=== PATIENT | male | born 1965 | race Caucasian/White ===

== ENCOUNTER 2016-09-09 13:39 | Emergency (ER) | payer OTHER ==
--- NOTE | 2016-09-09 14:17 | ED NURSING NOTES ---
Clinical Report - Nurses [facility] [address] [place] [address] 09/09/2016 13:45 Patient: VIVIEN BRIAN TRIAGE Triage time 1356 PM. Acuity: LEVEL 4. Chief Complaint: FEVER, COUGH, SORE THROAT and BODY ACHES. Alert. No acute distress. IMER COMA SCORE: Imer Coma Scale: 15- eyes open spontaneously (4); best verbal response- oriented x 4 (5); best motor response- obeys commands (6). --14:06 Blanac Rodriguez R.N. 13:55 09/09/16. BP: 126/65 (regular adult cuff) taken on the left arm, while lying. HR: 87. RR: 18. O2 saturation: 98%. Temp: 98.3 F (oral). Pain level now: 09/16. --14:06 Blanca Rodriguez R.N. Weight: 127 kg stated. Height/Length: 71 inches. BMI: 39.1. --14:01 Blanca Rodriguez R.N. Medications Levothyroxine Sodium Oral. --13:59 Blanca Rodriguez R.N. Ambien Oral. --13:59 Blanca Rodriguez R.N. Flonase Nasal. --13:59 Blanca Rodriguez R.N. Steroid inhaler . --14:00 Blanca Rodriguez R.N. Medication/allergy information source: the patient. --14:06 Blanca Rodriguez R.N. Allergies No Known Drug Allergy. --13:59 Blanca Rodriguez R.N. History Arrived by private vehicle. Historian: patient. Primary physician ([facility]). This started yesterday. ( Pt states feeling sick since yesterday, body aches, sweating, chest congestion, dry cough). He has had chills, chills, fatigue, diarrhea and nausea. He has had chest congestion (yesterday). Reports muscle aches. No sinus pain, abdominal pain or vomiting. No recent travel. Treatment CLINICAL SPECIALIST: Took Tylenol. (350mg x3 this morning). PAST MEDICAL HX: Immunizations: status is unknown. SOCIAL HX: Former smoker, end date 2007. Alcohol use. Patient is a recovering alcoholic. (23 years). No drug use. ABUSE ASSESSMENT: No report of abuse. SELF HARM ASSESSMENT: A self harm assessment was performed. The patient answered "no" to the question "Have you recently had thoughts about harming or killing others?". FALL RISK ASSESSMENT: Fall risk assessment completed. No fall risk identified. NUTRITIONAL RISK ASSESSMENT: The nutritional risk assessment revealed no deficiencies. FUNCTIONAL ASSESSMENT: Functional assessment: no impairments noted. LEARNING NEEDS ASSESSMENT: The learning needs assessment revealed no barriers. SKIN INTEGRITY ASSESSMENT: Skin integrity risk assessment completed. No skin integrity risk identified. --14:06 Blanca Rodriguez R.N. PROBLEMS: Asthma. Lifestyle / Substance Problems. Obesity. Hyperglycemia. Gastroesophageal Reflux Disease. Chronic Back Pain. Hypothyroidism. Suicidal Ideation. Depression. Immunizations. Anxiety Reaction. Manic bipolar I disorder. Schizophrenia. Diabetes Mellitus. --14:00 Blanca Rodriguez R.N. ADDITIONAL SURGERIES: Carpal Tunnel Surgery. Fractured cheek bone. --14:00 Blanca Rodriguez R.N. Assessment GENERAL / NEURO / PSYCH: Alert. Oriented X 4. Appears in no acute distress. Patient appears calm and cooperative. RESPIRATORY: Respirations not labored. Breath sounds within normal limits. CVS: Capillary refill less than 2 seconds. SKIN: Mucous membranes are pink. Skin is warm and dry. --14:06 Blanca Rodriguez R.N. Interventions ID band on patient. --14:06 Blanca Rodriguez R.N. PHYSICAL ASSESSMENT GENERAL / NEURO / PSYCH: Alert. Oriented X 4. Appears in no acute distress. RESPIRATORY: Respirations not labored. Breath sounds within normal limits. CVS: Capillary refill less than 2 seconds. SKIN: Skin intact. Skin is warm and dry. Normal skin turgor. --14:06 Blanca Rodriguez R.N. NURSING PROGRESS NOTES The initial plan of care for this patient has been created This plan of care was discussed with the patient. Pulse oximeter applied. Patient gowned. Reassurance given and given. Patient teaching performed. Patient identifiers checked. Call light placed in reach. Side rails up x 1. Bed placed in lowest position. Brakes of bed on. Brakes of chair on. Patient ready for evaluation- chart flagged and notification provided. FALL RISK ASSESSMENT: Fall risk assessment completed. No fall risk identified. --14:07 Blanca Rodriguez R.N. DISPOSITION / DISCHARGE Departure time: 1442 PM. Condition at departure: stable. The goals identified in the patient's plan of care were met. No learning barriers present. Discharge instructions provided and reviewed with the patient. Reviewed medication(s) side effects, precautions, dosing and course information. Prescription(s) given to the patient. Reviewed need for increased fluid intake. Activity restrictions (rest) reviewed. Patient verbalized understanding. Written instructions provided in Hungarian. ( Pt expresses understanding of discharge instructions, prescription given. Pt safely discharged). The patient was discharged by the nurse practitioner. He was discharged home and accompanied by self. He left the Emergency Department ambulatory and via private vehicle. Patient driving. FALL RISK ASSESSMENT: Fall risk assessment completed. No fall risk identified. IMER COMA SCORE: Imer Coma Scale: 15- eyes open spontaneously (4); best verbal response- oriented x 4 (5); best motor response- obeys commands (6). --14:44 Blanca Rodriguez R.N. 14:38 09/09/16. BP: 118/63 (large adult cuff) taken on the left arm, via an automated monitor, while sitting. HR: 86. RR: 18. O2 saturation: 99% on room air. Temp: 98.2 F (oral). Pain level now: 0/10. --14:44 Blanca Rodriguez R.N. Locked/Released at 09/17/2016 15:09 by Blanca Rodriguez R.N.
--- NOTE | 2016-09-09 14:17 | ED CLINICAL REPORT ---
Clinical Report - Physicians/Mid Levels [facility] [address] [place] [address] 09/09/2016 13:45 Patient: VIVIEN BRIAN Time Seen: 13:53; initial patient contact, initial documentation, patient care assumed. Arrived- By private vehicle. Historian- patient. HISTORY OF PRESENT ILLNESS Chief Complaint: COUGH, SORE THROAT, FEVER, MUSCLE ACHES and "FLU". This started yesterday and is still present. It was abrupt in onset. The illness is described as moderate. The patient has had a cough, a severe sore throat . It has been associated with pain upon swallowing, nasal congestion, fever and generalized muscle aches. No difficulty breathing, chest discomfort, sinus pressure or sinus drainage. Additional history - No known contact with a sick individual. No recent travel. Similar symptoms previously: None. Recent medical care: Not recently seen/assessed. REVIEW OF SYSTEMS The patient has had nausea and diarrhea. All systems otherwise negative, except as recorded above. PAST HISTORY See nurses notes. PROBLEMS: Asthma. Lifestyle / Substance Problems. Obesity. Hyperglycemia. Gastroesophageal Reflux Disease. Chronic Back Pain. Hypothyroidism. Suicidal Ideation. Depression. Immunizations. Anxiety Reaction. Manic bipolar I disorder. Schizophrenia. Diabetes Mellitus. --14:00 Blanca Rodriguez R.N. ADDITIONAL SURGERIES: Carpal Tunnel Surgery. Fractured cheek bone. --14:00 Blanca Rodriguez R.N. SOCIAL HISTORY Former smoker. Alcohol use. Patient is a recovering alcoholic. Not exposed to second-hand smoke at home. No drug use. No recent travel. Is a local resident. FAMILY HISTORY Negative. ADDITIONAL NOTES The nursing notes have been reviewed with agreement regarding the chief complaint, HPI, ROS, PMH and patient medications and allergies. PHYSICAL EXAM Vital Signs: 09/09/2016 13:55 BP: 126/65. HR: 87. RR: 18. O2 saturation: 98%. Temp: 98.3 F. Pain level now: 1/10. Have been reviewed as normal and appear to be correct. Appearance: Alert. No acute distress. Eyes: Pupils equal, round and reactive to light. Eyes normal inspection. ENT: Ears normal. Nose normal. Pharynx abnormal. A moderate number of tender mouth ulcerations present in the posterior pharynx and on the hard palate and soft palate. Uvula midline. Neck: Normal inspection. Neck supple. CVS: Normal heart rate and rhythm. Heart sounds normal. Pulses normal. Respiratory: No respiratory distress. Breath sounds normal. Abdomen: Moderately obese. Back: Normal inspection. Skin: Skin warm and dry. Normal skin color. No rash. Normal skin turgor. Extremities: Extremities exhibit normal ROM. No lower extremity edema. Neuro: Oriented X 3. No motor deficit. No sensory deficit. PROGRESS AND PROCEDURES Patient counseled in person regarding the patient's stable condition and diagnosis. 14:17. Differential Diagnosis: Other possible considerations: flu, viral illness, uri, sinusitis, allergies, pharyngitis, bronchitis, pneuomnia. Above considerations are based on history and physical exam. Differential diagnosis was discussed with patient. Disposition: Discharged home in good and unchanged condition (14:17). Condition: good and stable. CLINICAL IMPRESSION Acute viral rhinitis. No airway obstruction. Acute viral pharyngitis INSTRUCTIONS Alternate Tylenol (Acetaminophen) and Motrin (Ibuprofen) for fever, temperature greater than 101 degrees. Take according to label instructions. Drink plenty of fluids for the next 24 hours until better. Warnings: GENERAL WARNINGS: Return or contact your physician immediately if your condition worsens or changes unexpectedly, if not improving as expected, or if other problems arise. Specifically return if problem worsens. Prescription Medications: Motrin 600 mg tablets: take 1 tablet orally every 6 hours as needed for pain or fever. Dispense thirty (30). No refill. Magic Mouthwash: equal parts Viscous Lidocaine 2% + Maalox + Diphenhydramine (12.5 mg / 5 mL) Viscous 2% Lidocaine 30 mL, Maalox 30 mL and Diphenhydramine (12.5 mL/5 mL) 30 mL. Swish, gargle, and spit 1-2 teaspoons every 6 hours as needed. Dispense ninety (90) mL. No refills Follow-up: Follow up with your doctor in about three days as needed. Call for an appointment. Summary of care provided to patient. Understanding of the discharge instructions verbalized by patient. (Electronically signed by Marguerite Gonzales A.R.N.P. 09/09/2016 15:40)
--- NOTE | 2016-09-17 15:10 | ED DISCHARGE INSTRUCTIONS ---
Patient: VIVIEN BRIAN General Instructions [facility] VisitID: [id number] [place] [address] 51y, M Registration Date/Time: 09/09/2016 Acute viral rhinitis. No airway obstruction. Acute viral pharyngitis INSTRUCTIONS Alternate Tylenol (Acetaminophen) and Motrin (Ibuprofen) for fever, temperature greater than 101 degrees. Take according to label instructions. Drink plenty of fluids for the next 24 hours until better. Warnings: GENERAL WARNINGS: Return or contact your physician immediately if your condition worsens or changes unexpectedly, if not improving as expected, or if other problems arise. Specifically return if problem worsens. Prescription Medications: Motrin 600 mg tablets: take 1 tablet orally every 6 hours as needed for pain or fever. Dispense thirty (30). No refill. Magic Mouthwash: equal parts Viscous Lidocaine 2% + Maalox + Diphenhydramine (12.5 mg / 5 mL) Viscous 2% Lidocaine 30 mL, Maalox 30 mL and Diphenhydramine (12.5 mL/5 mL) 30 mL. Swish, gargle, and spit 1-2 teaspoons every 6 hours as needed. Dispense ninety (90) mL. No refills Follow-up: Follow up with your doctor in about three days as needed. Call for an appointment. Summary of care provided to patient. Understanding of the discharge instructions verbalized by patient. ADDITIONAL INFORMATION Viral Pharyngitis (Sore Throat) Your throat pain is due to an infection called "Viral Pharyngitis", commonly known as "Sore Throat". This is a contagious illness. It is spread through the air by coughing, kissing or by touching others after touching your mouth or nose. Symptoms include throat pain worse with swallowing, aching all over, headache and fever. Unlike strep throat, which is a bacterial infection, this illness does not require treatment with an antibiotic. Home Care: If your symptoms are severe, rest at home for the first 2-3 days. Children: Use acetaminophen (Tylenol) for fever, fussiness or discomfort. In infants over six months of age, you may use ibuprofen (Children's Motrin) instead of Tylenol. [NOTE: If your child has chronic liver or kidney disease or ever had a stomach ulcer or GI bleeding, talk with your socorro doctor before using these medicines.] (Aspirin should never be used in anyone under 18 years of age who is ill with a fever. It may cause severe liver damage.) Adults: You may use acetaminophen (Tylenol) or ibuprofen (Motrin, Advil) to control pain or fever, unless another medicine was prescribed. [NOTE: If you have chronic liver or kidney disease or ever had a stomach ulcer or GI bleeding, talk with your doctor before using these medicines.] Throat lozenges or sprays (Chloraseptic and others) will reduce pain. Gargling with warm salt water will also reduce throat pain. Dissolve 1/2 teaspoon of salt in 1 glass of warm water. This is especially useful just before meals. Follow Up with your doctor or as directed by our staff if you are not improving over the next week. Get Prompt Medical Attention if any of the following occur: Fever over 100.5F (38.0C) oral, or over 101.5F (38.6C) rectal for more than three days New or worsening ear pain, sinus pain or headache Painful lumps in the back of your neck Unable to swallow liquids or open your mouth wide due to throat pain Trouble breathing or noisy breathing Muffled voice New rash Viral Respiratory Illness [Adult] You have an Upper Respiratory Illness (URI) caused by a virus. This illness is contagious during the first few days. It is spread through the air by coughing and sneezing or by direct contact (touching the sick person and then touching your own eyes, nose or mouth). Most viral illnesses go away within 7-10 days with rest and simple home remedies. Sometimes, the illness may last for several weeks. Antibiotics will not kill a virus and are generally not prescribed for this condition. Home Care: 1) If symptoms are severe, rest at home for the first 2-3 days. When you resume activity, don't let yourself get too tired. 2) Avoid being exposed to cigarette smoke (yours or others). 3) Tylenol (acetaminophen) or ibuprofen (Advil, Motrin) will help fever, muscle aching and headache. (Persons under 18 with fever should not take aspirin since this may cause liver damage.) 4) Your appetite may be poor, so a light diet is fine. Avoid dehydration by drinking 6-8 glasses of fluids per day (water, soft drinks, juices, tea, soup). Extra fluids will help loosen secretions in the nose and lungs. 5) [id number] cold medicines will not shorten the length of time youre sick, but they may be helpful for the following symptoms: cough (Robitussin DM); sore throat (Chloraseptic lozenges or spray); nasal and sinus congestion (Actifed, Sudafed, Chlortrimeton). Follow Up with your doctor or as advised if you dont improve over the next week. Get Prompt Medical Attention if any of the following occur: -- Cough with lots of colored sputum (mucus) or blood in your sputum -- Chest pain, shortness of breath, wheezing or have trouble breathing -- Severe headache; face, neck or ear pain -- Fever over 100.4 F (38.0 C) for more than three days -- You cant swallow due to throat pain Fever Control (Adult) A fever is a natural reaction of the body to an illness. In most cases, the temperature itself is not harmful. It actually helps the body fight infections. A fever does not need to be treated unless you feel very uncomfortable. Home Care If you feel warm, check your temperature. If you feel very uncomfortable and your temperature is at or higher than 100.4F (38C) oral, you may take acetaminophen (Tylenol) every 4 to 6 hours. If you cant take or keep down oral medicine, ask your pharmacist for Tylenol suppositories, which you can get without a prescription. If the fever does not respond to acetaminophen within 1 hour, take ibuprofen (Advil or Motrin). If this works, keep taking the ibuprofen every 6 to 8 hours. Note: If you have chronic liver or kidney disease or ever had a stomach ulcer or GI bleeding, talk with your doctor before using these medications. If either medication alone does not keep the fever down, you may alternate the two medicines every 3 to 4 hours, only if your healthcare provider has instructed you to do so. For example, take Motrin then wait 3 hours, take Tylenol then wait 3 hours, take Motrin, and so on. Follow your healthcare providers instructions exactly. Clothing: Keep clothing light because excess body heat is lost through the skin. The fever will go up if you wear extra layers or wrap in blankets. Fluids: Fever causes the body to lose water through evaporation. Drink plenty of fluids such as water, juice, clear sodas, jeremiah gardenia, or lemonade. Do not use aspirin in anyone under 18 years of age who is ill with a fever. It can cause severe liver damage. Follow Up with your doctor or as advised by our staff if you do not get better after 48 hours. Get Prompt Medical Attention if any of the following occur: Fever does not get better after taking fever medication Fast or difficult breathing Earache, sinus pain, stiff or painful neck, headache, repeated diarrhea or vomiting You feel unusually irritable, drowsy, or confused A rash appears You feel weak or dizzy, or that you might faint Ibuprofen Oral tablet What is this medicine? IBUPROFEN (eye BYOO proe fen) is a non-steroidal anti-inflammatory drug (NSAID). It is used for dental pain, fever, headaches or migraines, osteoarthritis, rheumatoid arthritis, or painful monthly periods. It can also relieve minor aches and pains caused by a cold, flu, or sore throat. How should I use this medicine? Take this medicine by mouth with a glass of water. Follow the directions on the prescription label. Take this medicine with food if your stomach gets upset. Try to not lie down for at least 10 minutes after you take the medicine. Take your medicine at regular intervals. Do not take your medicine more often than directed. A special MedGuide will be given to you by the pharmacist with each prescription and refill. Be sure to read this information carefully each time. Talk to your biofuels product development manager regarding the use of this medicine in children. Special care may be needed. What side effects may I notice from receiving this medicine? Side effects that you should report to your doctor or health healthcare specialist as soon as possible: allergic reactions like skin rash, itching or hives, swelling of the face, lips, or tongue black or bloody stools, blood in the urine or in vomit breathing problems changes in vision chest pain general ill feeling or flu-like symptoms nausea or vomiting redness, blistering, peeling or loosening of the skin, including inside the mouth slurred speech or weakness on one side of the body stomach pain unexplained weight gain or swelling unusually weak or tired yellowing of eyes or skin Side effects that usually do not require medical attention (report to your doctor or health healthcare specialist if they continue or are bothersome): constipation or diarrhea dizziness gas or heartburn stomach upset What may interact with this medicine? Do not take this medicine with any of the following medications: cidofovir ketorolac methotrexate pemetrexed This medicine may also interact with the following medications: alcohol aspirin diuretics lithium other drugs for inflammation like prednisone warfarin What if I miss a dose? If you miss a dose, take it as soon as you can. If it is almost time for your next dose, take only that dose. Do not take double or extra doses. Where should I keep my medicine? Keep out of the reach of children. Store at room temperature between 15 and 30 degrees C (59 and 86 degrees F). Keep container tightly closed. Throw away any unused medicine after the expiration date. What should I tell my health care provider before I take this medicine? They need to know if you have any of these conditions: asthma cigarette smoker drink more than 3 alcohol containing drinks a day heart disease or circulation problems such as heart failure or leg edema (fluid retention) high blood pressure kidney disease liver disease stomach bleeding or ulcers an unusual or allergic reaction to ibuprofen, aspirin, other NSAIDS, other medicines, foods, dyes, or preservatives or trying to get breast-feeding What should I watch for while using this medicine? Tell your doctor or healthcare professional if your symptoms do not start to get better or if they get worse. This medicine does not prevent heart attack or stroke. In fact, this medicine may increase the chance of a heart attack or stroke. The chance may increase with longer use of this medicine and in people who have heart disease. If you take aspirin to prevent heart attack or stroke, talk with your doctor or health healthcare specialist. Do not take other medicines that contain aspirin, ibuprofen, or naproxen with this medicine. Side effects such as stomach upset, nausea, or ulcers may be more likely to occur. Many medicines available without a prescription should not be taken with this medicine. This medicine can cause ulcers and bleeding in the stomach and intestines at any time during treatment. Ulcers and bleeding can happen without warning symptoms and can cause . To reduce your risk, do not smoke cigarettes or drink alcohol while you are taking this medicine. You may get drowsy or dizzy. Do not drive, use machinery, or do anything that needs mental alertness until you know how this medicine affects you. Do not stand or sit up quickly, especially if you are an older patient. This reduces the risk of dizzy or fainting spells. This medicine can cause you to bleed more easily. Try to avoid damage to your teeth and gums when you brush or floss your teeth. You have been given the following additional information: Pharyngitis, Viral Uri, Viral, No Abx (Adult) Fever Control (Adult) Ibuprofen Oral tablet (Electronically signed by Marguerite Gonzales A.R.N.P. 09/09/2016 15:40)
--- NOTE | 2016-09-17 15:10 | ED MAR SUMMARY ---
..... Medication Administration Record [facility] [address] [place], [place] [id number] Patient: VIVIEN BRIAN Visit ID: [id number] 51y, M Weight: 127.0 kg Height/Length: 71 in BMI: 39.1 ALLERGIES: No Known Drug Allergy
--- NOTE | 2016-09-17 15:10 | ED MED RECONCILIATION SUMMARY ---
Patient: VIVIEN BRIAN Medication Reconciliation Report [facility] VisitID: [id number] [address] [place] [address] 51y, M Registration Date/Time: 09/09/2016 Weight: 127.0 kg Height/Length: 71 in. BMI: 39.1 ALLERGIES: No Known Drug Allergy The patient's Home Medications are listed below: THE FOLLOWING MEDICATIONS NEED TO BE RECONCILED: Ambien Oral Flonase Nasal Levothyroxine Sodium Oral Steroid inhaler The source(s) of the original Home Medication information: patient The following Medications were given to the patient in the Emergency Department: None. The following Medications were prescribed to the patient: Motrin 600 mg tablets: take 1 tablet orally every 6 hours as needed for pain or fever. Dispense thirty (30). No refill. -- Marguerite Gonzales, A.R.N.P. Magic Mouthwash: equal parts Viscous Lidocaine 2% + Maalox + Diphenhydramine (12.5 mg / 5 mL) Viscous 2% Lidocaine 30 mL, Maalox 30 mL and Diphenhydramine (12.5 mL/5 mL) 30 mL. Swish, gargle, and spit 1-2 teaspoons every 6 hours as needed. Dispense ninety (90) mL. No refills -- Marguerite Gonzales, A.R.N.P.
--- NOTE | 2016-09-17 15:10 | ED MED RECONCILIATION SUMMARY ---
Patient: VIVIEN BRIAN Medication Reconciliation Report [facility] VisitID: [id number] [address] [place] [address] 51y, M Registration Date/Time: 09/09/2016 Weight: 127.0 kg Height/Length: 71 in. BMI: 39.1 ALLERGIES: No Known Drug Allergy The patient's Home Medications are listed below: THE FOLLOWING MEDICATIONS NEED TO BE RECONCILED: Ambien Oral Flonase Nasal Levothyroxine Sodium Oral Steroid inhaler The source(s) of the original Home Medication information: patient The following Medications were given to the patient in the Emergency Department: None. The following Medications were prescribed to the patient: Motrin 600 mg tablets: take 1 tablet orally every 6 hours as needed for pain or fever. Dispense thirty (30). No refill. -- Marguerite Gonazles, A.R.N.P. Magic Mouthwash: equal parts Viscous Lidocaine 2% + Maalox + Diphenhydramine (12.5 mg / 5 mL) Viscous 2% Lidocaine 30 mL, Maalox 30 mL and Diphenhydramine (12.5 mL/5 mL) 30 mL. Swish, gargle, and spit 1-2 teaspoons every 6 hours as needed. Dispense ninety (90) mL. No refills -- Marguerite Gonzales, A.R.N.P.
--- NOTE | 2016-09-17 15:10 | ED MAR SUMMARY ---
..... Medication Administration Record [facility] [address] [place], [place] [id number] Patient: VIVIEN BRIAN Visit ID: [id number] 51y, M Weight: 127.0 kg Height/Length: 71 in BMI: 39.1 ALLERGIES: No Known Drug Allergy
== END 2016-09-09 14:42 | disposition home or self-care (01) ==
LOC: ED SRH 13:39
DX: J02.8 Acute pharyngitis due to other specified organisms (principal); J00 Acute nasopharyngitis [common cold]; B97.89 Other viral agents as the cause of diseases classified elsewhere; J45.909 Unspecified asthma, uncomplicated; F31.9 Bipolar disorder, unspecified; E11.9 Type 2 diabetes mellitus without complications; Z79.51 Long term (current) use of inhaled steroids; Z79.899 Other long term (current) drug therapy; Z87.891 Personal history of nicotine dependence

== ENCOUNTER 2016-11-28 13:32 | Emergency (ER) | payer OTHER ==
--- NOTE | 2016-11-28 15:26 | DIAGNOSTIC IMAGING REPORT ---
PROCEDURE: XR CHEST 1 VIEW INDICATION: EDEMA TECHNIQUE: Portable AP view 03:11 p.m. COMPARISON: None. FINDINGS: Lungs are clear. Heart and mediastinum are normal. Thorax is normal. IMPRESSION: 1. Negative chest.
--- NOTE | 2016-11-28 16:30 | ED NURSING NOTES ---
Clinical Report - Nurses [facility] [address] [place] [address] 11/28/2016 13:32 [id number] Triage time 13:51 Nov 28 2016. Acuity: LEVEL 3. Chief Complaint: RIGHT LOWER EXTREMITY PAIN, SWELLING and REDNESS. LEFT LOWER EXTREMITY PAIN, SWELLING and REDNESS. Alert. No acute distress. IMER COMA SCORE: [place] Coma Scale: 15- eyes open spontaneously (4); best verbal response- oriented x 4 (5); best motor response- obeys commands (6). --14:00 Becky Mendoza R.N. 13:51 11/28/16. BP: 129/62. HR: 87. RR: 16. O2 saturation: 95%. Temp: 97.9 F. Pain level now: 02/14. --14:00 Becky Mendoza R.N. Weight: 133.3 kg stated. Height/Length: 71 inches Per Patient. BMI: 41. --13:59 Becky Mendoza R.N. Medications Levothyroxine Sodium Oral (Tablet 125 mcg) 1 tablet, daily. --13:53 Becky Mendoza R.N. Ambien Oral (Tablet 5 mg) 1 tablet, at bedtime. --13:53 Becky Mendoza R.N. PriLOSEC Oral. --13:54 Becky Mendoza R.N. Allergies No Known Drug Allergy. --17:02 Becky Mendoza R.N. History Arrived by private vehicle. Historian: patient. No injury occurred. This occurred yesterday. He has had trouble walking. No fever. 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 PAST MEDICAL HX: Tetanus status: up-to-date. Immunizations: up-to-date. SOCIAL HX: Former smoker. No alcohol use or drug use. No infectious disease exposure. SELF HARM ASSESSMENT: A self harm assessment was performed. The patient answered "no" to the question "Do you have thoughts of harming or killing yourself?". FALL RISK ASSESSMENT: Fall risk assessment completed. No fall risk identified. NUTRITIONAL RISK ASSESSMENT: The nutritional risk assessment revealed no deficiencies. FUNCTIONAL ASSESSMENT: Functional assessment: no impairments noted. LEARNING NEEDS ASSESSMENT: The learning needs assessment revealed no barriers. ABUSE ASSESSMENT: Abuse assessment: The patient was asked "Do you feel safe in your home?". SKIN INTEGRITY ASSESSMENT: Skin integrity risk assessment completed. No skin integrity risk identified. --14:00 Becky Mendoza R.N. PROBLEMS: Peripheral Vascular Disease. URI. Pharyngitis. Asthma. Lifestyle / Substance Problems. Obesity. Hyperglycemia. Gastroesophageal Reflux Disease. Chronic Back Pain. Hypothyroidism. Suicidal Ideation. Depression. Immunizations. Anxiety Reaction. Manic bipolar I disorder. Schizophrenia. Diabetes Mellitus. --13:56 Becky Mendoza R.N. Interventions ID band on patient. To room. --14:00 Becky Mendoza R.N. PHYSICAL ASSESSMENT Ambulatory to room. GENERAL / NEURO / PSYCH: Oriented X 4. Alert. Appears in no acute distress. EXTREMITIES: Bilateral 3+ edema of the lower extremities involving both feet, both ankles and both lower legs. Right leg: tenderness, swelling and erythema. Left leg: tenderness, swelling and erythema. SKIN: Skin is warm and dry. --14:00 Becky Mendoza R.N. NURSING PROGRESS NOTES Patient gowned. Two patient identifiers checked. Call light placed in reach. Side rails up x 1. Bed placed in lowest position. Brakes of bed on. Patient ready for evaluation- chart flagged. --14:01 Becky Mendoza R.N. 14:48 11/28/2016 Site #1 started via IV in the right upper arm with an 20g angiocath; one attempt. Saline lock flushed with 10 mL saline. --14:48 Becky Mendoza R.N. EKG time: (15:06). EKG was performed by a tech and shown to the ED physician. ( No old EKG in [facility] medical records). --15:14 Adrianne Castillo 15:19 11/28/16. BP: 135/78. HR: 84. RR: 20. O2 saturation: 98%. Pain level now: 5/10. --15:19 Becky Mendoza R.N. 16:40 11/28/16. Wound cleansed with sterile water. Applied dressing consisting of 4x4 gauze, following the application of antibiotic ointment (bacitracin). Secured with tape. --16:41 Jeannie Arguello. DISPOSITION / DISCHARGE Departure time: :Nov 28 2016. Condition at departure: unchanged. No learning barriers present. Discharge instructions provided and reviewed with the patient. Reviewed medication(s) side effects, precautions, dosing and course information. Reviewed referral to a primary care physician. Patient verbalized understanding. Written instructions provided in Greenlandic. The patient was discharged home and accompanied by spouse. He left the Emergency Department ambulatory and via private vehicle. Spouse driving. IMER COMA SCORE: [place] Coma Scale: 15- eyes open spontaneously (4); best verbal response- oriented x 4 (5); best motor response- obeys commands (6). --17:01 Becky Mendoza R.N. 17:00 11/28/16. BP: 146/78. HR: 97. RR: 19. O2 saturation: 87%. Pain level now: 01/14. --17:01 Becky Mendoza R.N. Locked/Released at 11/28/2016 17:42 by Becky Mendoza R.N.
--- NOTE | 2016-11-28 16:30 | ED ORDER SUMMARY ---
..... Patient: VIVIEN BRIAN OrderSheet [facility] VisitID: [id number] [address] [place] [address] 51y, M Registration Date/Time: 11/28/2016 ORDER SHEET Weight: 133.3 kg (stated) Allergies: No Known Drug Allergy GENERAL ORDERS: Blood Culture (No) (N/A) Urgent (14:11/28/2016 Cathie BENEDICT) (Ack 14:42 Lynne) (15:08 KKnebel R.N.) CBC w Diff Urgent (14:11/28/2016 Cathie BENEDICT) (Ack 14:42 Lynne) (15:08 KKnebel R.N.) CMP Urgent (14:11/28/2016 Cathie BENEDICT) (Ack 14:42 Lynne) (15:08 KKnebel R.N.) PT with INR Urgent (14:11/28/2016 Cathie BENEDICT) (Ack 14:42 Lynne) (15:08 KKnebel R.N.) PTT Urgent (14:11/28/2016 Cathie BENEDICT) (Ack 14:42 Lynne) (15:08 KKnebel R.N.) Lactate, Serum Urgent (14:11/28/2016 Cathie BENEDICT) (Ack 14:42 Lynne) (15:08 KKnebel R.N.) D-Dimer Urgent (14:11/28/2016 Cathie BENEDICT) (Ack 14:42 Lynne) (15:08 KKnebel R.N.) Rice Farmworker (Continuous) (14:11/28/2016 Cathie BENEDICT) (15:18 KKnebel R.N.) Chest 1V Urgent (14:56 11/28/2016 Cathie BENEDICT) (Ack 15:11 Lynne) (15:12 RKartoribio) CPK Urgent (14:11/28/2016 Cathie BENEDICT) (15:08 KKnebel R.N.) (Ack 15:11 Lynne) Troponin-I Urgent (14:56 11/28/2016 Cathie BENEDICT) (15:08 KKnebel R.N.) (Ack 15:11 [facility]) BNP Urgent (14:56 11/28/2016 Cathie BENEDICT) (Ack 15:11 [facility] EKG - ER Stat (14:56 11/28/2016 Cathie BENEDICT) (15:09 [facility]) Pulse oximeter (14:56 11/28/2016 Cathie BENEDICT) (15:18 Karlie Lyle.N.) MEDICATION ORDERS: IV FLUIDS: IV Saline Lock (14:31 11/28/2016 Cathie BENEDICT) (14:48 Karlie Hernández) ORDER SHEET NOTES: [Electronically signed by Becky Mendoza R.N. (17:42 11/28/2016)] [Electronically signed by Bertrand Andrade MD (10:05 11/29/2016)] [Electronically locked/signed by Becky Mendoza R.N. (17:42 11/28/2016)]
--- NOTE | 2016-11-28 16:30 | ED CLINICAL REPORT ---
Clinical Report - Physicians/Mid Levels [facility] [address] [place] [address] 11/28/2016 13:32 Patient: VIVIEN BRIAN Time Seen: 14:06. Arrived- By private vehicle. Historian- patient. HISTORY OF PRESENT ILLNESS Chief Complaint: LOWER EXTREMITY PAIN and SWELLING. Severity is described as being .it has become recently worse. The quality is noted to be aching. Is still present. It was gradual in onset and has been constant. Symptoms located in the area of the right leg and left leg. The patient has had redness and swelling. ( He reports that he's had chronic intermittent swelling of his lower legs. He says that he has never been on a medication for this however. He has an appointment scheduled with a die cutter later this week for "right heart issues." He says that the swelling in his legs has been waxing and waning for several years and on occasion when it's bad "blisters" form and liquid draining from them. This happened again recently and then he's noticed increased redness and warmth and tenderness around the sites where the drainage occurred on the front of both of his shins.). Patient denies an injury. Similar symptoms previously: Several times, milder. REVIEW OF SYSTEMS No chills, fever, sweats, chest pain or cough. No difficulty breathing, pedal edema, palpitations, abdominal pain or constipation. No diarrhea, nausea, vomiting or urinary problems. All systems otherwise negative, except as recorded above. SOCIAL HISTORY Former smoker. No alcohol use or drug use. FAMILY HISTORY Denies family medical history. ADDITIONAL NOTES The nursing notes have been reviewed. PHYSICAL EXAM Vital Signs: 11/28/2016 13:51 BP: 129/62. HR: 87. RR: 16. O2 saturation: 95%. Temp: 97.9 F. Pain level now: 6/10. Have been reviewed. Appearance: Alert. He is moderately obese. Eyes: Pupils equal, round and reactive to light. ENT: Pharynx normal. Neck: Normal inspection. CVS: Normal heart rate and rhythm. Heart sounds normal. Respiratory: No respiratory distress. Breath sounds normal. Abdomen: Soft and nontender. No organomegaly. Back: ROM normal. Extremities: Swelling, warmth, tenderness, erythema and serous drainage present in the right leg and left leg. Bilateral moderate pitting edema of the lower extremities involving both feet, both ankles and both lower legs. No calf tenderness. (Superficial ulcerative lesions, hyperpigmentation and hairlessness on the bilateral pretibial regions). LABS, X-RAYS, AND EKG EKG: Rate: 77. Left atrial enlargement. Prior EKG unavailable. The study has been independently viewed by me. Chest X-ray: (IMPRESSION: 1. Negative chest.). The X-rays were interpreted by the radiologist and contemporaneously by me. Laboratory Tests: CBC w Diff: (LILIANA: 11/28/2016 15:00) ( MsgRcvd 11/28/2016 15:14) Final results Test Result Flag Units (Reference) WHITE BLOOD COUNT 7.2 K/uL (4.5-11.5) RED BLOOD COUNT 4.61 M/uL (4.50-5.90) HEMOGLOBIN 15.0 gm/dL (13.5-17.5) HEMATOCRIT 44.4 % (41.0-53.0) MEAN CELL VOLUME 96 fL (80-100) MEAN CORPUSCULAR HGB 33 pg (26-34) MEAN CORPUSCULAR HGB CONC 34 g/dL (31-37) RED CELL DISTRIBUTION WIDTH 13.7 % (11.6-14.8) PLATELET COUNT 218 K/uL (150-400) NEUTROPHIL % 61.4 % (50-75) LYMPH % 24.6 L % (25-40) MONO % 9.4 % (3-14) EOSINOPHIL % 4.0 % (0-4) BASOPHIL % 0.6 % (0-2) PT with INR: (LILIANA: 11/28/2016 15:00) ( MsgRcvd 11/28/2016 15:29) Final results Test Result Flag Units (Reference) INR 0.9 (0.8-1.2) Low Intensity Therapy: INR 1.5-2.0 PT range 18.5-23.1Mod.Intensity Therapy: INR 2.0-3.0 PT range 23.1-31.5High Intensity Therapy: INR 2.5-3.5 PT range 27.4-35.5High Intensity Therapy 2: INR 3.0-4.0 PT range 31.5-39.3 APTT 35 H SECONDS (24-34) D-DIMER QUANTITATIVE < 0.27 L ug/mLFEU (0.27-0.52) The primary value of this quantitative assay relates toits negative predictive value (i.e. exclusion) of pulmonaryembolism/deep vein thrombosis/DIC.Elevated levels of d-dimer may also occur with:, age, cancer, inflammation, liver disease,post-op, infection, hematoma, coronary disease, peripheralarteriopathy, bleeding disorders and thrombolytic treatment.Results should be correlated with other clinical andradiological data.Testing Methodology: Latex Immunoassay BNP: (LILIANA: 11/28/2016 15:00) ( [facility] 11/28/2016 15:50) Final results Test Result Flag Units (Reference) B-TYPE NATRIURETIC PEPTIDE 57.9 pg/ml (5-100) Lactate, Serum: (LILIANA: 11/28/2016 15:00) ( [facility] 11/28/2016 15:40) Final results Test Result Flag Units (Reference) LACTIC ACID 1.1 mmol/L (0.4-2.0) CMP: (LILIANA: 11/28/2016 15:00) ( [facility] 11/28/2016 15:42) Final results Test Result Flag Units (Reference) GLUCOSE 126 H mg/dL (70-110) BUN 16 mg/dL (7-18) CREATININE 1.1 mg/dL (0.6-1.3) Estimated GFR >60 mL/min Estimated GFR- >60 mL/min Note: Persistent reduction over 3 months in eGFR<60 mL/min/1.73 m2 defines CKD. Patients with eGFR values>=60 mL/min/1.73 m2 may also have CKD if evidence ofpersistent proteinuria. Additional information may be foundat www.kidney.org. SODIUM 139 mmol/L (136-145) POTASSIUM 3.8 mmol/L (3.5-5.1) CHLORIDE 105 mmol/L (98-107) CARBON DIOXIDE 28 mmol/L (21-32) CALCIUM 9.2 mg/dL (8.5-10.1) TOTAL PROTEIN 7.3 g/dL (6.4-8.2) ALBUMIN 3.4 g/dL (3.3-5.0) BILIRUBIN, TOTAL 0.4 mg/dL (0.0-1.0) ALKALINE PHOSPHATASE 73 U/L (46-116) AST (SGOT) 14 L U/L (15-37) ALT (SGPT) 21 U/L (12-78) CPK 51 U/L (24-260) TROPONIN I <0.05 L ng/mL (0.00-1.5) TROPONIN REFERENCE RANGE:<0.1 NEGATIVE0.1-1.5 INDETERMINANT>1.5 POSITIVE . PROGRESS AND PROCEDURES Course of Care: Patient is stable. Patient/family counseled. Old medical records reviewed. Disposition: Discharged. Condition: stable. CLINICAL IMPRESSION Bilateral pedal edema. Cellulitis of the right lower leg and left lower leg. INSTRUCTIONS Elevate affected areas above chest level. Protect wound and keep wound area clean. Change dressing twice daily. You may wash wounds briefly, then dry. Apply neosporin twice daily. Warnings: Further evaluation is necessary. GENERAL WARNINGS: Return or contact your physician immediately if your condition worsens or changes unexpectedly, if not improving as expected, or if other problems arise. Your Current Medications: CONTINUE TAKING THE FOLLOWING MEDICATIONS: Ambien Oral : Tablet 5 mg, 1 tablet at bedtime. Levothyroxine Sodium Oral : Tablet 125 mcg, 1 tablet daily. PriLOSEC Oral. Prescription Medications: Cephalexin 500mg: take 1 tab orally every 6 hours for 7 days. No refills Lasix 20 mg: Take 1 orally every 24 hours. Dispense fifteen (15). No refills. Substitution is permissible. Follow-up: Follow up with your doctor Thursday in three days. Call for an appointment. Follow up with a die cutter as scheduled. Understanding of the discharge instructions verbalized by patient and family. (Electronically signed by Bertrand Andrade MD 11/29/2016 10:05)
--- NOTE | 2016-11-28 16:30 | ED ORDER SUMMARY ---
..... Patient: VIVIEN BRIAN OrderSheet [facility] VisitID: [id number] [address] [place] [address] 51y, M Registration Date/Time: 11/28/2016 ORDER SHEET Weight: 133.3 kg (stated) Allergies: No Known Drug Allergy GENERAL ORDERS: Blood Culture (No) (N/A) Urgent (14:11/28/2016 Cathie BENEDICT) (Ack 14:42 Lynne) (15:08 KKnebel R.N.) CBC w Diff Urgent (14:11/28/2016 Cathie BENEDICT) (Ack 14:42 Lynne) (15:08 KKnebel R.N.) CMP Urgent (14:11/28/2016 Cathie BENEDICT) (Ack 14:42 Lynne) (15:08 KKnebel R.N.) PT with INR Urgent (14:11/28/2016 Cathie BENEDICT) (Ack 14:42 Lynne) (15:08 KKnebel R.N.) PTT Urgent (14:11/28/2016 Cathie BENEDICT) (Ack 14:42 Lynne) (15:08 KKnebel R.N.) Lactate, Serum Urgent (14:11/28/2016 Cathie BENEDICT) (Ack 14:42 Lynne) (15:08 KKnebel R.N.) D-Dimer Urgent (14:11/28/2016 Cathie BENEDICT) (Ack 14:42 Lynne) (15:08 KKnebel R.N.) Canary Raiser (Continuous) (14:11/28/2016 Cathie BENEDICT) (15:18 KKnebel R.N.) Chest 1V Urgent (14:56 11/28/2016 Cathie BENEDICT) (Ack 15:11 Lynne) (15:12 RKartoribio) CPK Urgent (14:11/28/2016 Cathie BENEDICT) (15:08 KKnebel R.N.) (Ack 15:11 Lynne) Troponin-I Urgent (14:56 11/28/2016 Cathie BENEDICT) (15:08 KKnebel R.N.) (Ack 15:11 [facility]) BNP Urgent (14:56 11/28/2016 Cathie BENEDICT) (Ack 15:11 [facility]) EKG - ER Stat (14:56 11/28/2016 Cathie BENEDICT) (15:09 [facility]) Pulse oximeter (14:56 11/28/2016 Cathie BENEDICT) (15:18 Karlie Lyle.N.) MEDICATION ORDERS: IV FLUIDS: IV Saline Lock (14:31 11/28/2016 Cathie BENEDICT) (14:48 Karlie Hernández) ORDER SHEET NOTES: [Electronically signed by Becky Mendoza R.N. (17:42 11/28/2016)] [Electronically signed by Bertrand Andrade MD (10:05 11/29/2016)] [Electronically locked/signed by Becky Mendoza R.N. (17:42 11/28/2016)]
--- NOTE | 2016-11-28 16:30 | ED CLINICAL REPORT ---
Clinical Report - Physicians/Mid Levels [facility] [address] [place] [address] 11/28/2016 13:32 Patient: VIVIEN BRIAN Time Seen: 14:06. Arrived- By private vehicle. Historian- patient. HISTORY OF PRESENT ILLNESS Chief Complaint: LOWER EXTREMITY PAIN and SWELLING. Severity is described as being .it has become recently worse. The quality is noted to be aching. Is still present. It was gradual in onset and has been constant. Symptoms located in the area of the right leg and left leg. The patient has had redness and swelling. ( He reports that he's had chronic intermittent swelling of his lower legs. He says that he has never been on a medication for this however. He has an appointment scheduled with a nuclear test technician later this week for "right heart issues." He says that the swelling in his legs has been waxing and waning for several years and on occasion when it's bad "blisters" form and liquid draining from them. This happened again recently and then he's noticed increased redness and warmth and tenderness around the sites where the drainage occurred on the front of both of his shins.). Patient denies an injury. Similar symptoms previously: Several times, milder. REVIEW OF SYSTEMS No chills, fever, sweats, chest pain or cough. No difficulty breathing, pedal edema, palpitations, abdominal pain or constipation. No diarrhea, nausea, vomiting or urinary problems. All systems otherwise negative, except as recorded above. SOCIAL HISTORY Former smoker. No alcohol use or drug use. FAMILY HISTORY Denies family medical history. ADDITIONAL NOTES The nursing notes have been reviewed. PHYSICAL EXAM Vital Signs: 11/28/2016 13:51 BP: 129/62. HR: 87. RR: 16. O2 saturation: 95%. Temp: 97.9 F. Pain level now: 6/10. Have been reviewed. Appearance: Alert. He is moderately obese. Eyes: Pupils equal, round and reactive to light. ENT: Pharynx normal. Neck: Normal inspection. CVS: Normal heart rate and rhythm. Heart sounds normal. Respiratory: No respiratory distress. Breath sounds normal. Abdomen: Soft and nontender. No organomegaly. Back: ROM normal. Extremities: Swelling, warmth, tenderness, erythema and serous drainage present in the right leg and left leg. Bilateral moderate pitting edema of the lower extremities involving both feet, both ankles and both lower legs. No calf tenderness. (Superficial ulcerative lesions, hyperpigmentation and hairlessness on the bilateral pretibial regions). LABS, X-RAYS, AND EKG EKG: Rate: 77. Left atrial enlargement. Prior EKG unavailable. The study has been independently viewed by me. Chest X-ray: (IMPRESSION: 1. Negative chest.). The X-rays were interpreted by the radiologist and contemporaneously by me. Laboratory Tests: CBC w Diff: (LILIANA: 11/28/2016 15:00) ( MsgRcvd 11/28/2016 15:14) Final results Test Result Flag Units (Reference) WHITE BLOOD COUNT 7.2 K/uL (4.5-11.5) RED BLOOD COUNT 4.61 M/uL (4.50-5.90) HEMOGLOBIN 15.0 gm/dL (13.5-17.5) HEMATOCRIT 44.4 % (41.0-53.0) MEAN CELL VOLUME 96 fL (80-100) MEAN CORPUSCULAR HGB 33 pg (26-34) MEAN CORPUSCULAR HGB CONC 34 g/dL (31-37) RED CELL DISTRIBUTION WIDTH 13.7 % (11.6-14.8) PLATELET COUNT 218 K/uL (150-400) NEUTROPHIL % 61.4 % (50-75) LYMPH % 24.6 L % (25-40) MONO % 9.4 % (3-14) EOSINOPHIL % 4.0 % (0-4) BASOPHIL % 0.6 % (0-2) PT with INR: (LILIANA: 11/28/2016 15:00) ( MsgRcvd 11/28/2016 15:29) Final results Test Result Flag Units (Reference) INR 0.9 (0.8-1.2) Low Intensity Therapy: INR 1.5-2.0 PT range 18.5-23.1Mod.Intensity Therapy: INR 2.0-3.0 PT range 23.1-31.5High Intensity Therapy: INR 2.5-3.5 PT range 27.4-35.5High Intensity Therapy 2: INR 3.0-4.0 PT range 31.5-39.3 APTT 35 H SECONDS (24-34) D-DIMER QUANTITATIVE < 0.27 L ug/mLFEU (0.27-0.52) The primary value of this quantitative assay relates toits negative predictive value (i.e. exclusion) of pulmonaryembolism/deep vein thrombosis/DIC.Elevated levels of d-dimer may also occur with:, age, cancer, inflammation, liver disease,post-op, infection, hematoma, coronary disease, peripheralarteriopathy, bleeding disorders and thrombolytic treatment.Results should be correlated with other clinical andradiological data.Testing Methodology: Latex Immunoassay BNP: (LILIANA: 11/28/2016 15:00) ( [facility] 11/28/2016 15:50) Final results Test Result Flag Units (Reference) B-TYPE NATRIURETIC PEPTIDE 57.9 pg/ml (5-100) Lactate, Serum: (LILIANA: 11/28/2016 15:00) ( [facility] 11/28/2016 15:40) Final results Test Result Flag Units (Reference) LACTIC ACID 1.1 mmol/L (0.4-2.0) CMP: (LILIANA: 11/28/2016 15:00) ( [facility] 11/28/2016 15:42) Final results Test Result Flag Units (Reference) GLUCOSE 126 H mg/dL (70-110) BUN 16 mg/dL (7-18) CREATININE 1.1 mg/dL (0.6-1.3) Estimated GFR >60 mL/min Estimated GFR- >60 mL/min Note: Persistent reduction over 3 months in eGFR<60 mL/min/1.73 m2 defines CKD. Patients with eGFR values>=60 mL/min/1.73 m2 may also have CKD if evidence ofpersistent proteinuria. Additional information may be foundat [email or web address].org. SODIUM 139 mmol/L (136-145) POTASSIUM 3.8 mmol/L (3.5-5.1) CHLORIDE 105 mmol/L (98-107) CARBON DIOXIDE 28 mmol/L (21-32) CALCIUM 9.2 mg/dL (8.5-10.1) TOTAL PROTEIN 7.3 g/dL (6.4-8.2) ALBUMIN 3.4 g/dL (3.3-5.0) BILIRUBIN, TOTAL 0.4 mg/dL (0.0-1.0) ALKALINE PHOSPHATASE 73 U/L (46-116) AST (SGOT) 14 L U/L (15-37) ALT (SGPT) 21 U/L (12-78) CPK 51 U/L (24-260) TROPONIN I <0.05 L ng/mL (0.00-1.5) TROPONIN REFERENCE RANGE:<0.1 NEGATIVE0.1-1.5 INDETERMINANT>1.5 POSITIVE . PROGRESS AND PROCEDURES Course of Care: Patient is stable. Patient/family counseled. Old medical records reviewed. Disposition: Discharged. Condition: stable. CLINICAL IMPRESSION Bilateral pedal edema. Cellulitis of the right lower leg and left lower leg. INSTRUCTIONS Elevate affected areas above chest level. Protect wound and keep wound area clean. Change dressing twice daily. You may wash wounds briefly, then dry. Apply neosporin twice daily. Warnings: Further evaluation is necessary. GENERAL WARNINGS: Return or contact your physician immediately if your condition worsens or changes unexpectedly, if not improving as expected, or if other problems arise. Your Current Medications: CONTINUE TAKING THE FOLLOWING MEDICATIONS: Ambien Oral : Tablet 5 mg, 1 tablet at bedtime. Levothyroxine Sodium Oral : Tablet 125 mcg, 1 tablet daily. PriLOSEC Oral. Prescription Medications: Cephalexin 500mg: take 1 tab orally every 6 hours for 7 days. No refills Lasix 20 mg: Take 1 orally every 24 hours. Dispense fifteen (15). No refills. Substitution is permissible. Follow-up: Follow up with your doctor Thursday in three days. Call for an appointment. Follow up with a nuclear test technician as scheduled. Understanding of the discharge instructions verbalized by patient and family. (Electronically signed by Bertrand Andrade MD 11/29/2016 10:05)
--- NOTE | 2016-11-28 16:30 | ED NURSING NOTES ---
Clinical Report - Nurses [facility] [address] [place] [address] 11/28/2016 13:32 [id number] Triage time 13:51 Nov 28 2016. Acuity: LEVEL 3. Chief Complaint: RIGHT LOWER EXTREMITY PAIN, SWELLING and REDNESS. LEFT LOWER EXTREMITY PAIN, SWELLING and REDNESS. Alert. No acute distress. IMER COMA SCORE: [place] Coma Scale: 15- eyes open spontaneously (4); best verbal response- oriented x 4 (5); best motor response- obeys commands (6). --14:00 Becky Mendoza R.N. 13:51 11/28/16. BP: 129/62. HR: 87. RR: 16. O2 saturation: 95%. Temp: 97.9 F. Pain level now: 02/14. --14:00 Becky Mendoza R.N. Weight: 133.3 kg stated. Height/Length: 71 inches Per Patient. BMI: 41. --13:59 Becky Mendoza R.N. Medications Levothyroxine Sodium Oral (Tablet 125 mcg) 1 tablet, daily. --13:53 Becky Mendoza R.N. Ambien Oral (Tablet 5 mg) 1 tablet, at bedtime. --13:53 Becky Mendoza R.N. PriLOSEC Oral. --13:54 Becky Mendoza R.N. Allergies No Known Drug Allergy. --17:02 Becky Mendoza R.N. History Arrived by private vehicle. Historian: patient. No injury occurred. This occurred yesterday. He has had trouble walking. No fever. 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 PAST MEDICAL HX: Tetanus status: up-to-date. Immunizations: up-to-date. SOCIAL HX: Former smoker. No alcohol use or drug use. No infectious disease exposure. SELF HARM ASSESSMENT: A self harm assessment was performed. The patient answered "no" to the question "Do you have thoughts of harming or killing yourself?". FALL RISK ASSESSMENT: Fall risk assessment completed. No fall risk identified. NUTRITIONAL RISK ASSESSMENT: The nutritional risk assessment revealed no deficiencies. FUNCTIONAL ASSESSMENT: Functional assessment: no impairments noted. LEARNING NEEDS ASSESSMENT: The learning needs assessment revealed no barriers. ABUSE ASSESSMENT: Abuse assessment: The patient was asked "Do you feel safe in your home?". SKIN INTEGRITY ASSESSMENT: Skin integrity risk assessment completed. No skin integrity risk identified. --14:00 Becky Mendoza R.N. PROBLEMS: Peripheral Vascular Disease. URI. Pharyngitis. Asthma. Lifestyle / Substance Problems. Obesity. Hyperglycemia. Gastroesophageal Reflux Disease. Chronic Back Pain. Hypothyroidism. Suicidal Ideation. Depression. Immunizations. Anxiety Reaction. Manic bipolar I disorder. Schizophrenia. Diabetes Mellitus. --13:56 Becky Mendoza R.N. Interventions ID band on patient. To room. --14:00 Becky Mendoza R.N. PHYSICAL ASSESSMENT Ambulatory to room. GENERAL / NEURO / PSYCH: Oriented X 4. Alert. Appears in no acute distress. EXTREMITIES: Bilateral 3+ edema of the lower extremities involving both feet, both ankles and both lower legs. Right leg: tenderness, swelling and erythema. Left leg: tenderness, swelling and erythema. SKIN: Skin is warm and dry. --14:00 Becky Mendoza R.N. NURSING PROGRESS NOTES Patient gowned. Two patient identifiers checked. Call light placed in reach. Side rails up x 1. Bed placed in lowest position. Brakes of bed on. Patient ready for evaluation- chart flagged. --14:01 Becky Mendoza R.N. 14:48 11/28/2016 Site #1 started via IV in the right upper arm with an 20g angiocath; one attempt. Saline lock flushed with 10 mL saline. --14:48 Becky Mendoza R.N. EKG time: (15:06). EKG was performed by a tech and shown to the ED physician. ( No old EKG in [facility] medical records). --15:14 Adrianne Castillo 15:19 11/28/16. BP: 135/78. HR: 84. RR: 20. O2 saturation: 98%. Pain level now: 5/10. --15:19 Becky Mendoza R.N. 16:40 11/28/16. Wound cleansed with sterile water. Applied dressing consisting of 4x4 gauze, following the application of antibiotic ointment (bacitracin). Secured with tape. --16:41 Jeannie Arguello. DISPOSITION / DISCHARGE Departure time: :Nov 28 2016. Condition at departure: unchanged. No learning barriers present. Discharge instructions provided and reviewed with the patient. Reviewed medication(s) side effects, precautions, dosing and course information. Reviewed referral to a primary care physician. Patient verbalized understanding. Written instructions provided in Cuban. The patient was discharged home and accompanied by spouse. He left the Emergency Department ambulatory and via private vehicle. Spouse driving. IMER COMA SCORE: [place] Coma Scale: 15- eyes open spontaneously (4); best verbal response- oriented x 4 (5); best motor response- obeys commands (6). --17:01 Becky Mendoza R.N. 17:00 11/28/16. BP: 146/78. HR: 97. RR: 19. O2 saturation: 87%. Pain level now: 01/14. --17:01 Becky Mendoza R.N. Locked/Released at 11/28/2016 17:42 by Becky Mendoza R.N.
--- NOTE | 2016-11-29 10:05 | ED DISCHARGE INSTRUCTIONS ---
Patient: VIVIEN BRIAN General Instructions [facility] VisitID: [id number] [place] [address] 51y, M Registration Date/Time: 11/28/2016 Bilateral pedal edema. Cellulitis of the right lower leg and left lower leg. INSTRUCTIONS Elevate affected areas above chest level. Protect wound and keep wound area clean. Change dressing twice daily. You may wash wounds briefly, then dry. Apply neosporin twice daily. Warnings: Further evaluation is necessary. GENERAL WARNINGS: Return or contact your physician immediately if your condition worsens or changes unexpectedly, if not improving as expected, or if other problems arise. Your Current Medications: CONTINUE TAKING THE FOLLOWING MEDICATIONS: Ambien Oral : Tablet 5 mg, 1 tablet at bedtime. Levothyroxine Sodium Oral : Tablet 125 mcg, 1 tablet daily. PriLOSEC Oral. Prescription Medications: Cephalexin 500mg: take 1 tab orally every 6 hours for 7 days. No refills Lasix 20 mg: Take 1 orally every 24 hours. Dispense fifteen (15). No refills. Substitution is permissible. Follow-up: Follow up with your doctor Thursday in three days. Call for an appointment. Follow up with a elementary ell teacher as scheduled. Understanding of the discharge instructions verbalized by patient and family. ADDITIONAL INFORMATION Cellulitis You have an infection of the skin known as cellulitis. This usually starts with a scrape, cut, insect bite, blister or other opening in the skin which becomes infected. This is a serious condition. It must be watched closely to be sure the infection is not spreading. With antibiotic treatment, the size of the red area will gradually shrink in size until the skin returns to normal. This will take 7-10 days. The red area should never increase in size once the antibiotic medicine has been started. Occasionally, an infection will be resistant to one antibiotic and another one will have to be used. Home Care: 1) Limit the use of the affected part, since excess movement can cause the infection to spread. 2) If the infection is on your leg, walk as little as possible during the first few days of the treatment. Keep your leg elevated while sitting. This will reduce swelling. 3) Take all of the antibiotic medicine exactly as directed until it is gone. Be careful not to miss any doses, especially during the first seven days. Follow Up with your doctor or this facility as directed. Check the infected area daily for the warning signs listed below. Get Prompt Medical Attention if any of the following occur: -- Spreading area of redness -- Increasing swelling or pain -- Appearance of pus or drainage -- Fever over 100.4 F (38.0 C) oral, or over 101.4 F (38.6 C) rectal, after two days on antibiotics Leg Swelling [Bilateral] Swelling of the feet, ankles and legs is called "Edema." It is due to excess fluid collecting in the tissues. Because of gravity, excess fluid in the body settles in the lowest part. This is why the legs and feet are most affected. Some of the causes for edema include: Disease of the heart (congestive heart failure or "CHF") Prolonged standing or sitting (with the legs in the down position) Infection of the feet or legs Venous Insufficiency (congestion of blood in the veins of the legs) Varicose veins (dilated veins of the lower leg) Garters, or clothing that constricts your legs. (These will cause venous congestion by restricting blood flow.) Some medicines (hormones such as control pills; some blood pressure medicines, such as calcium channel blockers; steroids; some antidepressants such as MAO inhibitors and tricyclics.) Menstrual periods with fluid retention Renal insufficiency (a form of kidney disease) Liver failure (Some swelling is normal, but a sudden increase in leg swelling or weight gain can be a sign of a dangerous complication of ). Medical treatment will depend on the cause of your swelling. Diuretics (water pills) may be prescribed to remove excess fluid. Home Care: Do not wear garments that constrict your legs (such as garters). Elevate your legs while lying or sitting. If infection, injury or recent surgery is the cause for your swelling, stay off your legs as much as possible until symptoms improve. If your doctor says that your leg swelling is caused by venous insufficiency or varicose veins, do not sit or print shop assistant one place for long periods of time. Take breaks and walk about every few hours. Brisk walking is a good exercise and helps circulate the congested blood from your leg. Talk to your doctor about the use of support stockings to prevent daytime leg swelling. If your doctor says that heart disease is the cause of your leg swelling, follow a low-salt diet to prevent excess fluid retention. Follow Up with your doctor or as advised by our staff. Get Prompt Medical Attention if any of the following occur: New or worsening shortness of breath or chest pain Increasing swelling in both legs or ankles Swelling of the abdomen Redness, warmth or swelling in one leg Fever of 100.4F (38C) or higher, or as directed by your healthcare provider Yellow color to the skin or eyes Rapid, unexplained weight gain Bandage Change If the bandage becomes wet or dirty, replace it. Otherwise, leave it in place for the first 24 hours. Then once a day: After removing the bandage, wash the area with soap and water. Use a wet cotton swab to loosen and remove any blood or crust that forms on the wound. After cleaning, apply a thin layer of antibiotic ointment or cream. Reapply the bandage. You may shower as usual after the first 24 hours. If the bandage is on an arm or leg, cover it with a plastic bag rubber banded at both ends before showering. No tub baths or swimming until the bandage is removed and the wound healed (at least 7 days). Cephalexin Monohydrate Oral tablet What is this medicine? CEPHALEXIN (sef a DONNELL in) is a cephalosporin antibiotic. It is used to treat certain kinds of bacterial infections It will not work for colds, flu, or other viral infections. How should I use this medicine? Take this medicine by mouth with a full glass of water. Follow the directions on the prescription label. This medicine can be taken with or without food. Take your medicine at regular intervals. Do not take your medicine more often than directed. Take all of your medicine as directed even if you think you are better. Do not skip doses or stop your medicine early. Talk to your supervisor ordnance truck installation regarding the use of this medicine in children. While this drug may be prescribed for selected conditions, precautions do apply. What side effects may I notice from receiving this medicine? Side effects that you should report to your doctor or health livestock caretaker as soon as possible: allergic reactions like skin rash, itching or hives, swelling of the face, lips, or tongue breathing problems pain or trouble passing urine redness, blistering, peeling or loosening of the skin, including inside the mouth severe or watery diarrhea unusually weak or tired yellowing of the eyes, skin Side effects that usually do not require medical attention (report to your doctor or health livestock caretaker if they continue or are bothersome): gas or heartburn genital or anal irritation headache joint or muscle pain nausea, vomiting What may interact with this medicine? probenecid some other antibiotics What if I miss a dose? If you miss a dose, take it as soon as you can. If it is almost time for your next dose, take only that dose. Do not take double or extra doses. There should be at least 4 to 6 hours between doses. Where should I keep my medicine? Keep out of the reach of children. Store at room temperature between 59 and 86 degrees F (15 and 30 degrees C). Throw away any unused medicine after the expiration date. What should I tell my health care provider before I take this medicine? They need to know if you have any of these conditions: kidney disease stomach or intestine problems, especially colitis an unusual or allergic reaction to cephalexin, other cephalosporins, penicillins, other antibiotics, medicines, foods, dyes or preservatives or trying to get breast-feeding What should I watch for while using this medicine? Tell your doctor or health livestock caretaker if your symptoms do not begin to improve in a few days. Do not treat diarrhea with over the counter products. Contact your doctor if you have diarrhea that lasts more than 2 days or if it is severe and watery. If you have diabetes, you may get a false-positive result for sugar in your urine. Check with your doctor or health livestock caretaker. Furosemide Oral tablet What is this medicine? FUROSEMIDE (fyoor [place] se mide) is a diuretic. It helps you make more urine and to lose salt and excess water from your body. This medicine is used to treat high blood pressure, and edema or swelling from heart, kidney, or liver disease. How should I use this medicine? Take this medicine by mouth with a glass of water. Follow the directions on the prescription label. You may take this medicine with or without food. If it upsets your stomach, take it with food or milk. Do not take your medicine more often than directed. Remember that you will need to pass more urine after taking this medicine. Do not take your medicine at a time of day that will cause you problems. Do not take at bedtime. Talk to your supervisor ordnance truck installation regarding the use of this medicine in children. While this drug may be prescribed for selected conditions, precautions do apply. What side effects may I notice from receiving this medicine? Side effects that you should report to your doctor or health livestock caretaker as soon as possible: blood in urine or stools dry mouth fever or chills hearing loss or ringing in the ears irregular heartbeat muscle pain or weakness, cramps skin rash stomach upset, pain, or nausea tingling or numbness in the hands or feet unusually weak or tired vomiting or diarrhea yellowing of the eyes or skin Side effects that usually do not require medical attention (report to your doctor or health livestock caretaker if they continue or are bothersome): headache loss of appetite unusual bleeding or bruising What may interact with this medicine? aspirin and aspirin-like medicines certain antibiotics chloral hydrate cisplatin cyclosporine digoxin diuretics laxatives lithium medicines for blood pressure medicines that relax muscles for surgery methotrexate NSAIDs, medicines for pain and inflammation like ibuprofen, naproxen, or indomethacin phenytoin steroid medicines like prednisone or cortisone sucralfate What if I miss a dose? If you miss a dose, take it as soon as you can. If it is almost time for your next dose, take only that dose. Do not take double or extra doses. Where should I keep my medicine? Keep out of the reach of children. Store at room temperature between 15 and 30 degrees C (59 and 86 degrees F). Protect from light. Throw away any unused medicine after the expiration date. What should I tell my health care provider before I take this medicine? They need to know if you have any of these conditions: abnormal blood electrolytes diarrhea or vomiting gout heart disease kidney disease, small amounts of urine, or difficulty passing urine liver disease an unusual or allergic reaction to furosemide, sulfa drugs, other medicines, foods, dyes, or preservatives or trying to get breast-feeding What should I watch for while using this medicine? Visit your doctor or health livestock caretaker for regular checks on your progress. Check your blood pressure regularly. Ask your doctor or health livestock caretaker what your blood pressure should be, and when you should contact him or her. If you are a diabetic, check your blood sugar as directed. You may need to be on a special diet while taking this medicine. Check with your doctor. Also, ask how many glasses of fluid you need to drink a day. You must not get dehydrated. You may get drowsy or dizzy. Do not drive, use machinery, or do anything that needs mental alertness until you know how this drug affects you. Do not stand or sit up quickly, especially if you are an older patient. This reduces the risk of dizzy or fainting spells. Alcohol can make you more drowsy and dizzy. Avoid alcoholic drinks. This medicine can make you more sensitive to the sun. Keep out of the sun. If you cannot avoid being in the sun, wear protective clothing and use sunscreen. Do not use sun lamps or tanning beds/booths. You have been given the following additional information: Cellulitis Peripheral Edema, Bilateral Dressing Change Cephalexin Monohydrate Oral tablet Furosemide Oral tablet (Electronically signed by Bertrand Andrade MD 11/29/2016 10:05)
--- NOTE | 2016-11-29 10:05 | ED MAR SUMMARY ---
..... Medication Administration Record [facility] [address] [place], [place] [id number] Patient: VIVIEN BRIAN Visit ID: [id number] 51y, M Weight: 133.3 kg Height/Length: 71 in BMI: 41 ALLERGIES: No Known Drug Allergy
--- NOTE | 2016-11-29 10:05 | ED DISCHARGE INSTRUCTIONS ---
Patient: VIVIEN BRIAN General Instructions [facility] VisitID: [id number] [place] [address] 51y, M Registration Date/Time: 11/28/2016 Bilateral pedal edema. Cellulitis of the right lower leg and left lower leg. INSTRUCTIONS Elevate affected areas above chest level. Protect wound and keep wound area clean. Change dressing twice daily. You may wash wounds briefly, then dry. Apply neosporin twice daily. Warnings: Further evaluation is necessary. GENERAL WARNINGS: Return or contact your physician immediately if your condition worsens or changes unexpectedly, if not improving as expected, or if other problems arise. Your Current Medications: CONTINUE TAKING THE FOLLOWING MEDICATIONS: Ambien Oral : Tablet 5 mg, 1 tablet at bedtime. Levothyroxine Sodium Oral : Tablet 125 mcg, 1 tablet daily. PriLOSEC Oral. Prescription Medications: Cephalexin 500mg: take 1 tab orally every 6 hours for 7 days. No refills Lasix 20 mg: Take 1 orally every 24 hours. Dispense fifteen (15). No refills. Substitution is permissible. Follow-up: Follow up with your doctor Thursday in three days. Call for an appointment. Follow up with a rivet heater gas as scheduled. Understanding of the discharge instructions verbalized by patient and family. ADDITIONAL INFORMATION Cellulitis You have an infection of the skin known as cellulitis. This usually starts with a scrape, cut, insect bite, blister or other opening in the skin which becomes infected. This is a serious condition. It must be watched closely to be sure the infection is not spreading. With antibiotic treatment, the size of the red area will gradually shrink in size until the skin returns to normal. This will take 7-10 days. The red area should never increase in size once the antibiotic medicine has been started. Occasionally, an infection will be resistant to one antibiotic and another one will have to be used. Home Care: 1) Limit the use of the affected part, since excess movement can cause the infection to spread. 2) If the infection is on your leg, walk as little as possible during the first few days of the treatment. Keep your leg elevated while sitting. This will reduce swelling. 3) Take all of the antibiotic medicine exactly as directed until it is gone. Be careful not to miss any doses, especially during the first seven days. Follow Up with your doctor or this facility as directed. Check the infected area daily for the warning signs listed below. Get Prompt Medical Attention if any of the following occur: -- Spreading area of redness -- Increasing swelling or pain -- Appearance of pus or drainage -- Fever over 100.4 F (38.0 C) oral, or over 101.4 F (38.6 C) rectal, after two days on antibiotics Leg Swelling [Bilateral] Swelling of the feet, ankles and legs is called "Edema." It is due to excess fluid collecting in the tissues. Because of gravity, excess fluid in the body settles in the lowest part. This is why the legs and feet are most affected. Some of the causes for edema include: Disease of the heart (congestive heart failure or "CHF") Prolonged standing or sitting (with the legs in the down position) Infection of the feet or legs Venous Insufficiency (congestion of blood in the veins of the legs) Varicose veins (dilated veins of the lower leg) Garters, or clothing that constricts your legs. (These will cause venous congestion by restricting blood flow.) Some medicines (hormones such as control pills; some blood pressure medicines, such as calcium channel blockers; steroids; some antidepressants such as MAO inhibitors and tricyclics.) Menstrual periods with fluid retention Renal insufficiency (a form of kidney disease) Liver failure (Some swelling is normal, but a sudden increase in leg swelling or weight gain can be a sign of a dangerous complication of ). Medical treatment will depend on the cause of your swelling. Diuretics (water pills) may be prescribed to remove excess fluid. Home Care: Do not wear garments that constrict your legs (such as garters). Elevate your legs while lying or sitting. If infection, injury or recent surgery is the cause for your swelling, stay off your legs as much as possible until symptoms improve. If your doctor says that your leg swelling is caused by venous insufficiency or varicose veins, do not sit or finish production manager one place for long periods of time. Take breaks and walk about every few hours. Brisk walking is a good exercise and helps circulate the congested blood from your leg. Talk to your doctor about the use of support stockings to prevent daytime leg swelling. If your doctor says that heart disease is the cause of your leg swelling, follow a low-salt diet to prevent excess fluid retention. Follow Up with your doctor or as advised by our staff. Get Prompt Medical Attention if any of the following occur: New or worsening shortness of breath or chest pain Increasing swelling in both legs or ankles Swelling of the abdomen Redness, warmth or swelling in one leg Fever of 100.4F (38C) or higher, or as directed by your healthcare provider Yellow color to the skin or eyes Rapid, unexplained weight gain Bandage Change If the bandage becomes wet or dirty, replace it. Otherwise, leave it in place for the first 24 hours. Then once a day: After removing the bandage, wash the area with soap and water. Use a wet cotton swab to loosen and remove any blood or crust that forms on the wound. After cleaning, apply a thin layer of antibiotic ointment or cream. Reapply the bandage. You may shower as usual after the first 24 hours. If the bandage is on an arm or leg, cover it with a plastic bag rubber banded at both ends before showering. No tub baths or swimming until the bandage is removed and the wound healed (at least 7 days). Cephalexin Monohydrate Oral tablet What is this medicine? CEPHALEXIN (sef a DONNELL in) is a cephalosporin antibiotic. It is used to treat certain kinds of bacterial infections It will not work for colds, flu, or other viral infections. How should I use this medicine? Take this medicine by mouth with a full glass of water. Follow the directions on the prescription label. This medicine can be taken with or without food. Take your medicine at regular intervals. Do not take your medicine more often than directed. Take all of your medicine as directed even if you think you are better. Do not skip doses or stop your medicine early. Talk to your machine lead burner regarding the use of this medicine in children. While this drug may be prescribed for selected conditions, precautions do apply. What side effects may I notice from receiving this medicine? Side effects that you should report to your doctor or health career counselor as soon as possible: allergic reactions like skin rash, itching or hives, swelling of the face, lips, or tongue breathing problems pain or trouble passing urine redness, blistering, peeling or loosening of the skin, including inside the mouth severe or watery diarrhea unusually weak or tired yellowing of the eyes, skin Side effects that usually do not require medical attention (report to your doctor or health career counselor if they continue or are bothersome): gas or heartburn genital or anal irritation headache joint or muscle pain nausea, vomiting What may interact with this medicine? probenecid some other antibiotics What if I miss a dose? If you miss a dose, take it as soon as you can. If it is almost time for your next dose, take only that dose. Do not take double or extra doses. There should be at least 4 to 6 hours between doses. Where should I keep my medicine? Keep out of the reach of children. Store at room temperature between 59 and 86 degrees F (15 and 30 degrees C). Throw away any unused medicine after the expiration date. What should I tell my health care provider before I take this medicine? They need to know if you have any of these conditions: kidney disease stomach or intestine problems, especially colitis an unusual or allergic reaction to cephalexin, other cephalosporins, penicillins, other antibiotics, medicines, foods, dyes or preservatives or trying to get breast-feeding What should I watch for while using this medicine? Tell your doctor or health career counselor if your symptoms do not begin to improve in a few days. Do not treat diarrhea with over the counter products. Contact your doctor if you have diarrhea that lasts more than 2 days or if it is severe and watery. If you have diabetes, you may get a false-positive result for sugar in your urine. Check with your doctor or health career counselor. Furosemide Oral tablet What is this medicine? FUROSEMIDE (fyoor [place] se mide) is a diuretic. It helps you make more urine and to lose salt and excess water from your body. This medicine is used to treat high blood pressure, and edema or swelling from heart, kidney, or liver disease. How should I use this medicine? Take this medicine by mouth with a glass of water. Follow the directions on the prescription label. You may take this medicine with or without food. If it upsets your stomach, take it with food or milk. Do not take your medicine more often than directed. Remember that you will need to pass more urine after taking this medicine. Do not take your medicine at a time of day that will cause you problems. Do not take at bedtime. Talk to your machine lead burner regarding the use of this medicine in children. While this drug may be prescribed for selected conditions, precautions do apply. What side effects may I notice from receiving this medicine? Side effects that you should report to your doctor or health career counselor as soon as possible: blood in urine or stools dry mouth fever or chills hearing loss or ringing in the ears irregular heartbeat muscle pain or weakness, cramps skin rash stomach upset, pain, or nausea tingling or numbness in the hands or feet unusually weak or tired vomiting or diarrhea yellowing of the eyes or skin Side effects that usually do not require medical attention (report to your doctor or health career counselor if they continue or are bothersome): headache loss of appetite unusual bleeding or bruising What may interact with this medicine? aspirin and aspirin-like medicines certain antibiotics chloral hydrate cisplatin cyclosporine digoxin diuretics laxatives lithium medicines for blood pressure medicines that relax muscles for surgery methotrexate NSAIDs, medicines for pain and inflammation like ibuprofen, naproxen, or indomethacin phenytoin steroid medicines like prednisone or cortisone sucralfate What if I miss a dose? If you miss a dose, take it as soon as you can. If it is almost time for your next dose, take only that dose. Do not take double or extra doses. Where should I keep my medicine? Keep out of the reach of children. Store at room temperature between 15 and 30 degrees C (59 and 86 degrees F). Protect from light. Throw away any unused medicine after the expiration date. What should I tell my health care provider before I take this medicine? They need to know if you have any of these conditions: abnormal blood electrolytes diarrhea or vomiting gout heart disease kidney disease, small amounts of urine, or difficulty passing urine liver disease an unusual or allergic reaction to furosemide, sulfa drugs, other medicines, foods, dyes, or preservatives or trying to get breast-feeding What should I watch for while using this medicine? Visit your doctor or health career counselor for regular checks on your progress. Check your blood pressure regularly. Ask your doctor or health career counselor what your blood pressure should be, and when you should contact him or her. If you are a diabetic, check your blood sugar as directed. You may need to be on a special diet while taking this medicine. Check with your doctor. Also, ask how many glasses of fluid you need to drink a day. You must not get dehydrated. You may get drowsy or dizzy. Do not drive, use machinery, or do anything that needs mental alertness until you know how this drug affects you. Do not stand or sit up quickly, especially if you are an older patient. This reduces the risk of dizzy or fainting spells. Alcohol can make you more drowsy and dizzy. Avoid alcoholic drinks. This medicine can make you more sensitive to the sun. Keep out of the sun. If you cannot avoid being in the sun, wear protective clothing and use sunscreen. Do not use sun lamps or tanning beds/booths. You have been given the following additional information: Cellulitis Peripheral Edema, Bilateral Dressing Change Cephalexin Monohydrate Oral tablet Furosemide Oral tablet (Electronically signed by Bertrand Andrade MD 11/29/2016 10:05)
--- NOTE | 2016-11-29 10:05 | ED MAR SUMMARY ---
..... Medication Administration Record [facility] [address], [place] [id number] Patient: VIVIEN BRIAN Visit ID: [id number] 51y, M Weight: 133.3 kg Height/Length: 71 in BMI: 41 ALLERGIES: No Known Drug Allergy
--- NOTE | 2016-11-29 10:05 | ED MED RECONCILIATION SUMMARY ---
Patient: VIVIEN BRIAN Medication Reconciliation Report [facility] VisitID: [id number] [address] [place] [address] 51y, M Registration Date/Time: 11/28/2016 Weight: 133.3 kg Height/Length: 71 in. BMI: 41.0 ALLERGIES: No Known Drug Allergy The patient's Home Medications are listed below: CONTINUE TAKING THE FOLLOWING MEDICATIONS: Ambien Oral (5 mg) 1 tablet, at bedtime Levothyroxine Sodium Oral (125 mcg) 1 tablet, daily PriLOSEC Oral The source(s) of the original Home Medication information: Not obtained. The following Medications were given to the patient in the Emergency Department: None. The following Medications were prescribed to the patient: Cephalexin 500mg: take 1 tab orally every 6 hours for 7 days. No refills -- Bertrand Andrade MD Lasix 20 mg: Take 1 orally every 24 hours. Dispense fifteen (15). No refills. Substitution is permissible. -- Bertrand Andrade MD
--- NOTE | 2016-11-29 10:05 | ED MED RECONCILIATION SUMMARY ---
Patient: VIVIEN BRIAN Medication Reconciliation Report [facility] VisitID: [id number] [address] [place] [address] 51y, M Registration Date/Time: 11/28/2016 Weight: 133.3 kg Height/Length: 71 in. BMI: 41.0 ALLERGIES: No Known Drug Allergy The patient's Home Medications are listed below: CONTINUE TAKING THE FOLLOWING MEDICATIONS: Ambien Oral (5 mg) 1 tablet, at bedtime Levothyroxine Sodium Oral (125 mcg) 1 tablet, daily PriLOSEC Oral The source(s) of the original Home Medication information: Not obtained. The following Medications were given to the patient in the Emergency Department: None. The following Medications were prescribed to the patient: Cephalexin 500mg: take 1 tab orally every 6 hours for 7 days. No refills -- Bertrand Andrade MD Lasix 20 mg: Take 1 orally every 24 hours. Dispense fifteen (15). No refills. Substitution is permissible. -- Bertrand Andrade MD
== END 2016-11-28 17:02 | disposition home or self-care (01) ==
LOC: ED SRH 13:32
DX: L03.115 Cellulitis of right lower limb (principal); L03.116 Cellulitis of left lower limb; R60.0 Localized edema; E11.9 Type 2 diabetes mellitus without complications; J45.909 Unspecified asthma, uncomplicated; K21.9 Gastro-esophageal reflux disease without esophagitis; Z87.891 Personal history of nicotine dependence; Z79.01 Long term (current) use of anticoagulants; Z79.899 Other long term (current) drug therapy
CPT/HCPCS: 90065; 90100; 90616; 91320; 91556; 92031; 92610; 94001; 94060; 95059

== ENCOUNTER 2017-02-09 20:12 | Emergency (ER) | payer OTHER ==
--- NOTE | 2017-02-09 22:04 | ED CLINICAL REPORT ---
Clinical Report - Physicians/Mid Levels [facility] [address] [place] [address] 02/09/2017 20:12 Patient: VIVIEN BRIAN Time Seen: 20:35; initial patient contact, initial documentation, patient care assumed. Arrived- By private vehicle. Historian- patient. HISTORY OF PRESENT ILLNESS Chief Complaint: FLANK PAIN. Modifying factors- worsened by movement. Not relieved by anything. It is described as "pain". No radiation. It is described as located in the left flank. This started about 2 - 3 days ago and is still present. It was abrupt in onset and has been constant. No nausea, loss of appetite, vomiting or diarrhea. No additional abdominal pain. No recent travel. Similar symptoms previously: None. Recent medical care: The patient was seen recently in the office. ( had cardiac cath done Thur, still waiting on results). REVIEW OF SYSTEMS No constipation, black stools, hematemesis, difficulty with urination or pain with urination. No urinary frequency, bloody stools, fever, chest pain or difficulty breathing. All systems otherwise negative, except as recorded above. PAST HISTORY See nurses notes. PROBLEMS: Cellulitis. Pedal Edema. Peripheral Vascular Disease. URI. Pharyngitis. Asthma. Lifestyle / Substance Problems. Obesity. Hyperglycemia. Gastroesophageal Reflux Disease. Chronic Back Pain. Hypothyroidism. Suicidal Ideation. Depression. Immunizations. Anxiety Reaction. Manic bipolar I disorder. Schizophrenia. Diabetes Mellitus. --20:26 Blanca Rodriguez R.N. ADDITIONAL SURGERIES: Carpal Tunnel Surgery. Fractured cheek bone. --20:26 Blanca Rodriguez R.N. SOCIAL HISTORY Former smoker. Alcohol use. Patient is a recovering alcoholic. No drug use. No recent travel. Is a local resident. FAMILY HISTORY Negative. ADDITIONAL NOTES The nursing notes have been reviewed with agreement regarding the chief complaint, HPI, ROS, PMH and patient medications and allergies. PHYSICAL EXAM Vital Signs: 02/09/2017 20:22 BP: 134/75. HR: 100. RR: 21. O2 saturation: 98%. Temp: 98.3 F. Pain level now: 06/16. Have been reviewed as normal and appear to be correct. Appearance: Alert. Oriented X3. No acute distress. Eyes: Pupils equal, round and reactive to light. Eyes normal inspection. Neck: Normal inspection. Neck supple. CVS: Normal heart rate and rhythm. Heart sounds normal. Pulses normal. Respiratory: No respiratory distress. Breath sounds normal. Chest nontender. Abdomen: Soft and nontender. Bowel sounds normal. No organomegaly. No mass. Moderately obese. (R groin was site of cath, site clear, no swelling, no bruising, nontender). Back: Normal inspection. Skin: Skin warm and dry. Normal skin color. No rash. Normal skin turgor. Extremities: Extremities exhibit normal ROM. No lower extremity edema. Neuro: Oriented X 3. No motor deficit. No sensory deficit. LABS, X-RAYS, AND EKG Laboratory Tests: UA-Culture if indicated: (LILIANA: 02/09/2017 20:50) ( [facility] 02/09/2017 21:35) Final results Test Result Flag Units (Reference) URINE COLOR YELLOW URINE APPEARANCE CLEAR URINE GLUCOSE NEGATIVE (NEGATIVE) URINE BILIRUBIN NEGATIVE (NEGATIVE) URINE KETONE NEGATIVE (NEGATIVE) URINE SPECIFIC GRAVITY 1.020 (1.010-1.030) URINE PH 6.0 (5.0-8.0) URINE PROTEIN NEGATIVE (NEGATIVE) URINE UROBILINOGEN 0.2 EU/dL (0.2-1.0) URINE NITRITE NEGATIVE (NEGATIVE) URINE BLOOD NEGATIVE (NEGATIVE) URINE LEUK ESTERASE NEGATIVE (NEGATIVE) URINE RBC RARE rbc/hpf (0-1) URINE WBC RARE wbc/hpf (0-1) URINE EPITHELIAL CELLS RARE EPI/hpf (0-5) URINE BACTERIA NONE SEEN (NONE SEEN) URINE COMMENT CULT NOT INDICATED URINE CULTURES ARE SET-UP BASED ON THE FOLLOWING CRITERIA:POSITIVE NITRITEPOSITIVE LEUKOCYTE ESTERASEGREATER THAN 10 WHITE BLOOD CELLSMODERATE (2+) OR GREATER BACTERIA CBC w Diff: (LILIANA: 02/09/2017 20:50) ( [facility] 02/09/2017 21:18) Final results Test Result Flag Units (Reference) WHITE BLOOD COUNT 8.8 K/uL (4.5-11.5) RED BLOOD COUNT 4.65 M/uL (4.50-5.90) HEMOGLOBIN 15.1 gm/dL (13.5-17.5) HEMATOCRIT 44.1 % (41.0-53.0) MEAN CELL VOLUME 95 fL (80-100) MEAN CORPUSCULAR HGB 32 pg (26-34) MEAN CORPUSCULAR HGB CONC 34 g/dL (31-37) RED CELL DISTRIBUTION WIDTH 12.6 % (11.6-14.8) PLATELET COUNT 260 K/uL (150-400) NEUTROPHIL % 62.4 % (50-75) LYMPH % 23.4 L % (25-40) MONO % 9.7 % (3-14) EOSINOPHIL % 3.9 % (0-4) BASOPHIL % 0.6 % (0-2) [id number]: (LILIANA: 02/09/2017 20:50) ( [facility] 02/09/2017 21:33) Final results Test Result Flag Units (Reference) D-DIMER QUANTITATIVE < 0.27 L ug/mLFEU (0.27-0.52) The primary value of this quantitative assay relates toits negative predictive value (i.e. exclusion) of pulmonaryembolism/deep vein thrombosis/DIC.Elevated levels of d-dimer may also occur with:, age, cancer, inflammation, liver disease,post-op, infection, hematoma, coronary disease, peripheralarteriopathy, bleeding disorders and thrombolytic treatment.Results should be correlated with other clinical andradiological data.Testing Methodology: Latex Immunoassay CMP: (LILIANA: 02/09/2017 20:50) ( [facility] 02/09/2017 21:22) Final results Test Result Flag Units (Reference) GLUCOSE 110 mg/dL (70-110) BUN 17 mg/dL (7-18) CREATININE 1.2 mg/dL (0.6-1.3) Estimated GFR >60 mL/min Estimated GFR- >60 mL/min Note: Persistent reduction over 3 months in eGFR<60 mL/min/1.73 m2 defines CKD. Patients with eGFR values>=60 mL/min/1.73 m2 may also have CKD if evidence ofpersistent proteinuria. Additional information may be foundat www.[email or web address].org. SODIUM 139 mmol/L (136-145) POTASSIUM 4.1 mmol/L (3.5-5.1) CHLORIDE 103 mmol/L (98-107) CARBON DIOXIDE 25 mmol/L (21-32) CALCIUM 9.6 mg/dL (8.5-10.1) TOTAL PROTEIN 7.8 g/dL (6.4-8.2) ALBUMIN 3.6 g/dL (3.3-5.0) BILIRUBIN, TOTAL 0.6 mg/dL (0.0-1.0) ALKALINE PHOSPHATASE 86 U/L (46-116) AST (SGOT) 17 U/L (15-37) ALT (SGPT) 20 U/L (12-78) . PROGRESS AND PROCEDURES Patient counseled in person regarding the patient's stable condition, test results and diagnosis. 21:47. Differential Diagnosis: I considered peptic ulcer disease, mesenteric lymphadenitis, obstipation, splenic injury, splenic rupture, splenic infarction, splenic abscess, spontaneous bacterial peritonitis, hernia, perforated viscus, urinary tract infection and ureterolithiasis as a possible cause of abdominal pain in this patient. This is a partial list of diagnoses considered. Above considerations are based on history, physical exam, reassessment and laboratory data. Differential diagnosis was discussed with patient. Disposition: Discharged home in good and improved condition (22:04). Condition: good and stable. CLINICAL IMPRESSION Acute left flank pain INSTRUCTIONS Warnings: GENERAL WARNINGS: Return or contact your physician immediately if your condition worsens or changes unexpectedly, if not improving as expected, or if other problems arise. SPECIFICALLY, return if you develop pain in the abdomen, pelvis or testicle, fever, vomiting, the inability to keep fluids down, blood in vomitus, blood in diarrhea, fainting or lightheadedness. Prescription Medications: Ultram 50 mg tablets: take 1-2 orally every 6 hours as needed for pain. Dispense twenty (20). No refills. Substitution is permissible. Flexeril 10 mg: Take 1 orally every 8 hours as needed for muscle spasm. Dispense twenty (20). No refills. Substitution is permissible. Follow-up: Follow up with your doctor in about three days even if well. Call for an appointment. Summary of care provided to patient. Understanding of the discharge instructions verbalized by patient. (Electronically signed by Marguerite Gonzales A.R.N.P. 02/09/2017 23:02)
--- NOTE | 2017-02-09 22:04 | ED ORDER SUMMARY ---
..... Patient: VIVIEN BRIAN OrderSheet [facility] VisitID: [id number] [place] [address] 51y, M Registration Date/Time: 02/09/2017 ORDER SHEET Weight: 134.7 kg (stated) Allergies: No Known Drug Allergy GENERAL ORDERS: CBC w Diff Urgent (20:53 02/09/2017 HBivens A.R.N.P.) (20:53 EHassan R.N.) CMP Urgent (20:53 02/09/2017 HBivens A.R.N.P.) (20:53 EHassan R.N.) UA-Culture if indicated Urgent (20:53 02/09/2017 HBivens A.R.N.P.) (20:53 EHassan R.N.) D-Dimer Urgent (21:04 02/09/2017 HBivens A.R.N.P.) (21:07 EHassan R.N.) MEDICATION ORDERS: IV FLUIDS: Toradol IV 30 mg (NOW) (20:53 02/09/2017 EHassan R.N. verbal order read back to HBivens A.R.N.P.) (20:53 EHassan R.N.) IV Saline Lock (20:53 02/09/2017 HBivens A.R.N.P.) (21:00 EHassan R.N.) ORDER SHEET NOTES: [Electronically signed by Blanca Rodriguez R.N. (22:23 02/09/2017)] [Electronically signed by Marguerite Gonzales A.R.N.P. (23:02 02/09/2017)] [Electronically locked/signed by Blanca Rodriguez R.N. (22:23 02/09/2017)]
--- NOTE | 2017-02-09 22:04 | ED NURSING NOTES ---
Clinical Report - Nurses [facility] [address] [place] [address] 02/09/2017 20:12 Patient: VIVIEN BRIAN TRIAGE Triage time 2020 PM. Acuity: LEVEL 3. Chief Complaint: (left flank pain). Alert. No acute distress. SEPSIS SCREEN: Sepsis Screen. Negative (no infection suspected/documented). --20:32 Blanca Rodriguez R.N. 20:22 02/09/17. BP: 134/75 (regular adult cuff) taken on the left arm, via an automated monitor, while sitting. HR: 100. RR: 21. O2 saturation: 98% on room air. Temp: 98.3 F (oral). Pain level now: 06/16. --20:32 Blanca Rodriguez R.N. Weight: 134.7 kg stated. Height/Length: 71 inches Per Patient. BMI: 41.4. --20:23 Blanca Rodriguez R.N. Medications Albuterol Sulfate Inhalation 2 puffs, 2 x daily . Ambien Oral (Tablet 5 mg) 1 tablet, at bedtime. Ambien Oral. Flonase Nasal. Levothyroxine Sodium Oral (Tablet 125 mcg) 1 tablet, daily. Levothyroxine Sodium Oral. PriLOSEC Oral. Steroid inhaler . Tessalon Perles Oral 1 capsule, at bedtime. --20:26 Blanca Rodriguez R.N. Allergies No Known Drug Allergy. --20:26 Blanca Rodriguez R.N. Medication/allergy information source: the patient. --20:32 Blanca Rodriguez R.N. History Arrived by private vehicle. Historian: patient. Unaccompanied. ( Pt states that since Thursday has been experiencing left flank pain, thought that maybe he slept on it wrong. Placed ice hot patches with no relief. Pt states nothing makes it better, movement makes it worst Pt denies any diarrhea, constipation, no trouble urinating. Here for further evaluation). Onset. (thursday). No weakness, cough, difficulty breathing or skin rash. Denies muscle aches. 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 Took ibuprofen and aspirin. PAST MEDICAL HX: Immunizations: status is unknown. SOCIAL HX: Former smoker, end date 2007. Alcohol use. Patient is a recovering alcoholic. No drug use. No infectious disease exposure. ABUSE ASSESSMENT: No report of abuse. SELF HARM ASSESSMENT: A self harm assessment was performed. The patient answered "no" to the question "Do you have thoughts of harming or killing yourself?" and "Have you recently had thoughts about harming or killing others?". FALL RISK ASSESSMENT: Fall risk assessment completed. No fall risk identified. NUTRITIONAL RISK ASSESSMENT: The nutritional risk assessment revealed no deficiencies. FUNCTIONAL ASSESSMENT: Functional assessment: no impairments noted. LEARNING NEEDS ASSESSMENT: The learning needs assessment revealed no barriers. SKIN INTEGRITY ASSESSMENT: Skin integrity risk assessment completed. No skin integrity risk identified. --20:32 Blanca Rodriguez R.N. ( Pt does states having an angiogram this past thru the right groin, site intact. 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 --20:52 Blanca Rodriguez R.N. PROBLEMS: Cellulitis. Pedal Edema. Peripheral Vascular Disease. URI. Pharyngitis. Asthma. Lifestyle / Substance Problems. Obesity. Hyperglycemia. Gastroesophageal Reflux Disease. Chronic Back Pain. Hypothyroidism. Suicidal Ideation. Depression. Immunizations. Anxiety Reaction. Manic bipolar I disorder. Schizophrenia. Diabetes Mellitus. --20:26 Blanca Rodriguez R.N. ADDITIONAL SURGERIES: Carpal Tunnel Surgery. Fractured cheek bone. --20:26 Blanca Rodriguez R.N. Interventions ID band on patient. --20:32 Blanca Rodriguez R.N. PHYSICAL ASSESSMENT Ambulatory to room. GENERAL / NEURO / PSYCH: Alert. Oriented X 4. Appears in pain. HEENT: Pupils equal, round and reactive to light. No facial asymmetry noted. Mucous membranes are pink. RESPIRATORY: Respirations not labored. Decreased breath sounds posteriorly and in the bases bilaterally; decreased breath sounds in the right lung base posteriorly, mid-lung posteriorly and upper lung posteriorly; decreased breath sounds in the left lung base posteriorly, mid-lung posteriorly and in the bases bilaterally and upper lung posteriorly. CVS: Normal sinus rhythm noted. Pulses within normal limits. GI / : Abdomen soft and nontender and normal bowel sounds. SKIN: Skin intact. Skin is warm and dry. Normal skin turgor. --20:32 Blanca Rodriguez R.N. NURSING PROGRESS NOTES The initial plan of care for this patient has been created This plan of care was discussed with the patient. Patient gowned. Reassurance given. Patient identifiers checked. Call light placed in reach. Side rails up x 1. Bed placed in lowest position. --20:32 Blanca Rodriguez R.N. 20:35 02/09/2017 Two (2) unsuccessful IV access attempts including the right upper arm and left antecubital space. Applied bandage and manual pressure. --21:06 Ofelia Gonsales R.N. 20:48 02/09/2017 Site #1 started via IV in the right antecubital space with an 20g angiocath; two attempts. Blood drawn: rainbow set. Labeled in the presence of the patient and sent to the lab. --20:53 Blanca Rodriguez R.N. 20:53 02/09/2017 Toradol IVP 30 mg given over 10 second(s) via site #1. Allergies verified and confirmed 5 rights. IV patency established. IV site checked: no pain, redness, or swelling. IV flushed thoroughly pre- and post-medication administration. IVP given by RN. --20:53 Blanca Rodriguez R.N. Reassurance given. Reassessment after medication administered. He has had no adverse reaction. Overall patient status is improved- he states feels better. ( PT states "feeling a bit better able to cough now"). GENERAL / NEURO / PSYCH: Denies headache or anxiety. RESPIRATORY: Denies difficulty breathing. CVS: Denies chest pain. GI / : Denies nausea. Call light placed in reach. --21:42 Blanca Rodriguez R.N. 21:41 02/09/17. BP: 127/75. HR: 99. RR: 18. O2 saturation: 98%. Temp: 98.3 F. Pain level now: 04/16. --21:42 Blanca Rodriguez R.N. Patient waiting for lab results. --21:42 Blanca Rodriguez R.N. DISPOSITION / DISCHARGE 22:22 02/09/2017 Site #1 removed upon discharge. Manual pressure, pressure dressing, bandaid and bandage applied. --22:22 Blanca Rodriguez R.N. Departure time: 2225 PM. Condition at departure: stable. The goals identified in the patient's plan of care were met. No learning barriers present. Discharge instructions provided and reviewed with the patient. Reviewed warnings. Reviewed medication(s) side effects, precautions and dosing information. Patient verbalized understanding. Written instructions provided in Turkmen. No treatment instructions or referrals given to the patient. The patient was discharged by the nurse practitioner. He was discharged home and unaccompanied at time of discharge. He left the Emergency Department ambulatory and via private vehicle. Patient driving. FALL RISK ASSESSMENT: Fall risk assessment completed. No fall risk identified. --22:23 Blanca Rodriguez R.N. 22:00 02/09/17. BP: 145/54. HR: 89. RR: 14. O2 saturation: 100% on room air. Temp: 98.3 F (oral). Pain level now: 03/16. --22:23 Blanca Rodriguez R.N. Locked/Released at 02/09/2017 22:23 by Blanca Rodriguez R.N.
--- NOTE | 2017-02-09 22:04 | ED ORDER SUMMARY ---
..... Patient: VIVIEN BRIAN OrderSheet [facility] VisitID: [id number] [place] [address] 51y, M Registration Date/Time: 02/09/2017 ORDER SHEET Weight: 134.7 kg (stated) Allergies: No Known Drug Allergy GENERAL ORDERS: CBC w Diff Urgent (20:53 02/09/2017 HBivens A.R.N.P.) (20:53 EHassan R.N.) CMP Urgent (20:53 02/09/2017 HBivens A.R.N.P.) (20:53 EHassan R.N.) UA-Culture if indicated Urgent (20:53 02/09/2017 HBivens A.R.N.P.) (20:53 EHassan R.N.) D-Dimer Urgent (21:04 02/09/2017 HBivens A.R.N.P.) (21:07 EHassan R.N.) MEDICATION ORDERS: IV FLUIDS: Toradol IV 30 mg (NOW) (20:53 02/09/2017 EHassan R.N. verbal order read back to HBivens A.R.N.P.) (20:53 EHassan R.N.) IV Saline Lock (20:53 02/09/2017 HBivens A.R.N.P.) (21:00 EHassan R.N.) ORDER SHEET NOTES: [Electronically signed by Blanca Rodriguez R.N. (22:23 02/09/2017)] [Electronically signed by Marguerite Gonzales A.R.N.P. (23:02 02/09/2017)] [Electronically locked/signed by Blanca Rodriguez R.N. (22:23 02/09/2017)]
--- NOTE | 2017-02-09 22:04 | ED CLINICAL REPORT ---
Clinical Report - Physicians/Mid Levels [facility] [address] [place] [address] 02/09/2017 20:12 Patient: VIVIEN BRIAN Time Seen: 20:35; initial patient contact, initial documentation, patient care assumed. Arrived- By private vehicle. Historian- patient. HISTORY OF PRESENT ILLNESS Chief Complaint: FLANK PAIN. Modifying factors- worsened by movement. Not relieved by anything. It is described as "pain". No radiation. It is described as located in the left flank. This started about 2 - 3 days ago and is still present. It was abrupt in onset and has been constant. No nausea, loss of appetite, vomiting or diarrhea. No additional abdominal pain. No recent travel. Similar symptoms previously: None. Recent medical care: The patient was seen recently in the office. ( had cardiac cath done Thur, still waiting on results). REVIEW OF SYSTEMS No constipation, black stools, hematemesis, difficulty with urination or pain with urination. No urinary frequency, bloody stools, fever, chest pain or difficulty breathing. All systems otherwise negative, except as recorded above. PAST HISTORY See nurses notes. PROBLEMS: Cellulitis. Pedal Edema. Peripheral Vascular Disease. URI. Pharyngitis. Asthma. Lifestyle / Substance Problems. Obesity. Hyperglycemia. Gastroesophageal Reflux Disease. Chronic Back Pain. Hypothyroidism. Suicidal Ideation. Depression. Immunizations. Anxiety Reaction. Manic bipolar I disorder. Schizophrenia. Diabetes Mellitus. --20:26 Blanca Rodriguez R.N. ADDITIONAL SURGERIES: Carpal Tunnel Surgery. Fractured cheek bone. --20:26 Blanca Rodriguez R.N. SOCIAL HISTORY Former smoker. Alcohol use. Patient is a recovering alcoholic. No drug use. No recent travel. Is a local resident. FAMILY HISTORY Negative. ADDITIONAL NOTES The nursing notes have been reviewed with agreement regarding the chief complaint, HPI, ROS, PMH and patient medications and allergies. PHYSICAL EXAM Vital Signs: 02/09/2017 20:22 BP: 134/75. HR: 100. RR: 21. O2 saturation: 98%. Temp: 98.3 F. Pain level now: 06/16. Have been reviewed as normal and appear to be correct. Appearance: Alert. Oriented X3. No acute distress. Eyes: Pupils equal, round and reactive to light. Eyes normal inspection. Neck: Normal inspection. Neck supple. CVS: Normal heart rate and rhythm. Heart sounds normal. Pulses normal. Respiratory: No respiratory distress. Breath sounds normal. Chest nontender. Abdomen: Soft and nontender. Bowel sounds normal. No organomegaly. No mass. Moderately obese. (R groin was site of cath, site clear, no swelling, no bruising, nontender). Back: Normal inspection. Skin: Skin warm and dry. Normal skin color. No rash. Normal skin turgor. Extremities: Extremities exhibit normal ROM. No lower extremity edema. Neuro: Oriented X 3. No motor deficit. No sensory deficit. LABS, X-RAYS, AND EKG Laboratory Tests: UA-Culture if indicated: (LILIANA: 02/09/2017 20:50) ( [facility] 02/09/2017 21:35) Final results Test Result Flag Units (Reference) URINE COLOR YELLOW URINE APPEARANCE CLEAR URINE GLUCOSE NEGATIVE (NEGATIVE) URINE BILIRUBIN NEGATIVE (NEGATIVE) URINE KETONE NEGATIVE (NEGATIVE) URINE SPECIFIC GRAVITY 1.020 (1.010-1.030) URINE PH 6.0 (5.0-8.0) URINE PROTEIN NEGATIVE (NEGATIVE) URINE UROBILINOGEN 0.2 EU/dL (0.2-1.0) URINE NITRITE NEGATIVE (NEGATIVE) URINE BLOOD NEGATIVE (NEGATIVE) URINE LEUK ESTERASE NEGATIVE (NEGATIVE) URINE RBC RARE rbc/hpf (0-1) URINE WBC RARE wbc/hpf (0-1) URINE EPITHELIAL CELLS RARE EPI/hpf (0-5) URINE BACTERIA NONE SEEN (NONE SEEN) URINE COMMENT CULT NOT INDICATED URINE CULTURES ARE SET-UP BASED ON THE FOLLOWING CRITERIA:POSITIVE NITRITEPOSITIVE LEUKOCYTE ESTERASEGREATER THAN 10 WHITE BLOOD CELLSMODERATE (2+) OR GREATER BACTERIA CBC w Diff: (LILIANA: 02/09/2017 20:50) ( [facility] [place] 02/09/2017 21:18) Final results Test Result Flag Units (Reference) WHITE BLOOD COUNT 8.8 K/uL (4.5-11.5) RED BLOOD COUNT 4.65 M/uL (4.50-5.90) HEMOGLOBIN 15.1 gm/dL (13.5-17.5) HEMATOCRIT 44.1 % (41.0-53.0) MEAN CELL VOLUME 95 fL (80-100) MEAN CORPUSCULAR HGB 32 pg (26-34) MEAN CORPUSCULAR HGB CONC 34 g/dL (31-37) RED CELL DISTRIBUTION WIDTH 12.6 % (11.6-14.8) PLATELET COUNT 260 K/uL (150-400) NEUTROPHIL % 62.4 % (50-75) LYMPH % 23.4 L % (25-40) MONO % 9.7 % (3-14) EOSINOPHIL % 3.9 % (0-4) BASOPHIL % 0.6 % (0-2) [id number]: (LILIANA: 02/09/2017 20:50) ( [facility] [place] 02/09/2017 21:33) Final results Test Result Flag Units (Reference) D-DIMER QUANTITATIVE < 0.27 L ug/mLFEU (0.27-0.52) The primary value of this quantitative assay relates toits negative predictive value (i.e. exclusion) of pulmonaryembolism/deep vein thrombosis/DIC.Elevated levels of d-dimer may also occur with:, age, cancer, inflammation, liver disease,post-op, infection, hematoma, coronary disease, peripheralarteriopathy, bleeding disorders and thrombolytic treatment.Results should be correlated with other clinical andradiological data.Testing Methodology: Latex Immunoassay CMP: (LILIANA: 02/09/2017 20:50) ( [facility] [place] 02/09/2017 21:22) Final results Test Result Flag Units (Reference) GLUCOSE 110 mg/dL (70-110) BUN 17 mg/dL (7-18) CREATININE 1.2 mg/dL (0.6-1.3) Estimated GFR >60 mL/min Estimated GFR- >60 mL/min Note: Persistent reduction over 3 months in eGFR<60 mL/min/1.73 m2 defines CKD. Patients with eGFR values>=60 mL/min/1.73 m2 may also have CKD if evidence ofpersistent proteinuria. Additional information may be foundat www.kidney.org. SODIUM 139 mmol/L (136-145) POTASSIUM 4.1 mmol/L (3.5-5.1) CHLORIDE 103 mmol/L (98-107) CARBON DIOXIDE 25 mmol/L (21-32) CALCIUM 9.6 mg/dL (8.5-10.1) TOTAL PROTEIN 7.8 g/dL (6.4-8.2) ALBUMIN 3.6 g/dL (3.3-5.0) BILIRUBIN, TOTAL 0.6 mg/dL (0.0-1.0) ALKALINE PHOSPHATASE 86 U/L (46-116) AST (SGOT) 17 U/L (15-37) ALT (SGPT) 20 U/L (12-78) . PROGRESS AND PROCEDURES Patient counseled in person regarding the patient's stable condition, test results and diagnosis. 21:47. Differential Diagnosis: I considered peptic ulcer disease, mesenteric lymphadenitis, obstipation, splenic injury, splenic rupture, splenic infarction, splenic abscess, spontaneous bacterial peritonitis, hernia, perforated viscus, urinary tract infection and ureterolithiasis as a possible cause of abdominal pain in this patient. This is a partial list of diagnoses considered. Above considerations are based on history, physical exam, reassessment and laboratory data. Differential diagnosis was discussed with patient. Disposition: Discharged home in good and improved condition (22:04). Condition: good and stable. CLINICAL IMPRESSION Acute left flank pain INSTRUCTIONS Warnings: GENERAL WARNINGS: Return or contact your physician immediately if your condition worsens or changes unexpectedly, if not improving as expected, or if other problems arise. SPECIFICALLY, return if you develop pain in the abdomen, pelvis or testicle, fever, vomiting, the inability to keep fluids down, blood in vomitus, blood in diarrhea, fainting or lightheadedness. Prescription Medications: Ultram 50 mg tablets: take 1-2 orally every 6 hours as needed for pain. Dispense twenty (20). No refills. Substitution is permissible. Flexeril 10 mg: Take 1 orally every 8 hours as needed for muscle spasm. Dispense twenty (20). No refills. Substitution is permissible. Follow-up: Follow up with your doctor in about three days even if well. Call for an appointment. Summary of care provided to patient. Understanding of the discharge instructions verbalized by patient. (Electronically signed by Marguerite Gonzales A.R.N.P. 02/09/2017 23:02)
--- NOTE | 2017-02-09 23:02 | ED MED RECONCILIATION SUMMARY ---
Patient: VIVIEN BRIAN Medication Reconciliation Report [facility] VisitID: [id number] [place] [address] 51y, M Registration Date/Time: 02/09/2017 Weight: 134.7 kg Height/Length: 71 in. BMI: 41.4 ALLERGIES: No Known Drug Allergy The patient's Home Medications are listed below: THE FOLLOWING MEDICATIONS NEED TO BE RECONCILED: Albuterol Sulfate Inhalation 2 puffs, 2 x daily Ambien Oral (5 mg) 1 tablet, at bedtime Ambien Oral Flonase Nasal Levothyroxine Sodium Oral (125 mcg) 1 tablet, daily Levothyroxine Sodium Oral PriLOSEC Oral Steroid inhaler Tessalon Perles Oral 1 capsule, at bedtime The source(s) of the original Home Medication information: patient The following Medications were given to the patient in the Emergency Department: Toradol [IVP] IVP 30 mg, administered: 02/09/2017 8:53:00 PM The following Medications were prescribed to the patient: Ultram 50 mg tablets: take 1-2 orally every 6 hours as needed for pain. Dispense twenty (20). No refills. Substitution is permissible. -- Marguerite Gonzales, CocoR.N.P. Flexeril 10 mg: Take 1 orally every 8 hours as needed for muscle spasm. Dispense twenty (20). No refills. Substitution is permissible. -- Marguerite Gonzales A.R.N.P.
--- NOTE | 2017-02-09 23:02 | ED MAR SUMMARY ---
..... Medication Administration Record [facility] [address] [place] [address] Patient: VIVIEN BRIAN Visit ID: [id number] 51y, M Weight: 134.7 kg Height/Length: 71 in BMI: 41.4 ALLERGIES: No Known Drug Allergy Given 20:53 02/09/2017 Blanca Rodriguez R.N. Medication Administered: TORADOL [IVP], Dose: 30 mg IVP over 10 second(s), Site: #1 right AC. Medication Ordered: Toradol IV 30 mg (NOW).
--- NOTE | 2017-02-09 23:02 | ED DISCHARGE INSTRUCTIONS ---
Patient: VIVIEN BRIAN General Instructions [facility] VisitID: [id number] [place] [address] 51y, M Registration Date/Time: 02/09/2017 Acute left flank pain INSTRUCTIONS Warnings: GENERAL WARNINGS: Return or contact your physician immediately if your condition worsens or changes unexpectedly, if not improving as expected, or if other problems arise. SPECIFICALLY, return if you develop pain in the abdomen, pelvis or testicle, fever, vomiting, the inability to keep fluids down, blood in vomitus, blood in diarrhea, fainting or lightheadedness. Prescription Medications: Ultram 50 mg tablets: take 1-2 orally every 6 hours as needed for pain. Dispense twenty (20). No refills. Substitution is permissible. Flexeril 10 mg: Take 1 orally every 8 hours as needed for muscle spasm. Dispense twenty (20). No refills. Substitution is permissible. Follow-up: Follow up with your doctor in about three days even if well. Call for an appointment. Summary of care provided to patient. Understanding of the discharge instructions verbalized by patient. ADDITIONAL INFORMATION Flank Pain[Uncertain Cause] The flank is the area between the upper abdomen and the back. Pain here is often related to the kidneyan infection or a kidney stone. Other causes of flank pain include spinal arthritis, pinched nerve from a disk injury, back muscle strain or spasm. The cause of your flank pain is not certain and further tests may be needed. Home Care: You may use acetaminophen (Tylenol) or ibuprofen (Motrin, Advil) to control pain, unless another medicine was prescribed. [NOTE: If you have chronic liver or kidney disease or ever had a stomach ulcer or GI bleeding, talk with your doctor before using these medicines.] If the cause of your pain is coming from the muscles, ice or heat may give relief. During the first two days after injury, apply an ICE PACK to the painful area for 20 minutes every 2-4 hours. This will reduce swelling and pain. HEAT (hot shower, hot bath or heating pad) works well for muscle spasm. You can start with ice, then switch to heat after two days. Some patients feel best alternating ice and heat treatments. Use the one method that feels the best to you. Follow Up with your doctor or as advised by our staff for further evaluation if your symptoms are not improving over the next few days. Return Promptly or contact your doctor if any of the following occur: Repeated vomiting Fever of 100.4F (38C) or higher, or as directed by your healthcare provider Increasing flank pain Pain that spreads to the front of the abdomen Dizziness, weakness or fainting Blood in your urine Burning with urination or frequent urination Increasing pain in the leg Numbness or weakness in the leg Tramadol Hydrochloride Oral tablet What is this medicine? TRAMADOL (TRA ma dole) is a pain reliever. It is used to treat moderate to severe pain in adults. How should I use this medicine? Take this medicine by mouth with a full glass of water. Follow the directions on the prescription label. If the medicine upsets your stomach, take it with food or milk. Do not take more medicine than you are told to take. Talk to your log chain feeder regarding the use of this medicine in children. Special care may be needed. What side effects may I notice from receiving this medicine? Side effects that you should report to your doctor or health patient care coordinator as soon as possible: allergic reactions like skin rash, itching or hives, swelling of the face, lips, or tongue breathing difficulties, wheezing confusion itching light headedness or fainting spells redness, blistering, peeling or loosening of the skin, including inside the mouth seizures Side effects that usually do not require medical attention (report to your doctor or health patient care coordinator if they continue or are bothersome): constipation dizziness drowsiness headache nausea, vomiting What may interact with this medicine? Do not take this medicine with any of the following medications: MAOIs like Carbex, Eldepryl, Marplan, Nardil, and Parnate This medicine may also interact with the following medications: alcohol or medicines that contain alcohol antihistamines benzodiazepines bupropion carbamazepine or oxcarbazepine clozapine cyclobenzaprine digoxin furazolidone linezolid medicines for depression, anxiety, or psychotic disturbances medicines for migraine headache like almotriptan, eletriptan, frovatriptan, naratriptan, rizatriptan, sumatriptan, zolmitriptan medicines for pain like pentazocine, buprenorphine, butorphanol, meperidine, nalbuphine, and propoxyphene medicines for sleep muscle relaxants naltrexone phenobarbital phenothiazines like perphenazine, thioridazine, chlorpromazine, mesoridazine, fluphenazine, prochlorperazine, promazine, and trifluoperazine procarbazine warfarin What if I miss a dose? If you miss a dose, take it as soon as you can. If it is almost time for your next dose, take only that dose. Do not take double or extra doses. Where should I keep my medicine? Keep out of the reach of children. Store at room temperature between 15 and 30 degrees C (59 and 86 degrees F). Keep container tightly closed. Throw away any unused medicine after the expiration date. What should I tell my health care provider before I take this medicine? They need to know if you have any of these conditions: brain tumor depression drug abuse or addiction head injury if you frequently drink alcohol containing drinks kidney disease or trouble passing urine liver disease lung disease, asthma, or breathing problems seizures or epilepsy suicidal thoughts, plans, or attempt; a previous suicide attempt by you or a family member an unusual or allergic reaction to tramadol, codeine, other medicines, foods, dyes, or preservatives or trying to get breast-feeding What should I watch for while using this medicine? Tell your doctor or health patient care coordinator if your pain does not go away, if it gets worse, or if you have new or a different type of pain. You may develop tolerance to the medicine. Tolerance means that you will need a higher dose of the medicine for pain relief. Tolerance is normal and is expected if you take this medicine for a long time. Do not suddenly stop taking your medicine because you may develop a severe reaction. Your body becomes used to the medicine. This does NOT mean you are addicted. Addiction is a behavior related to getting and using a drug for a non-medical reason. If you have pain, you have a medical reason to take pain medicine. Your doctor will tell you how much medicine to take. If your doctor wants you to stop the medicine, the dose will be slowly lowered over time to avoid any side effects. You may get drowsy or dizzy. Do not drive, use machinery, or do anything that needs mental alertness until you know how this medicine affects you. Do not stand or sit up quickly, especially if you are an older patient. This reduces the risk of dizzy or fainting spells. Alcohol can increase or decrease the effects of this medicine. Avoid alcoholic drinks. You may have constipation. Try to have a bowel movement at least every 2 to 3 days. If you do not have a bowel movement for 3 days, call your doctor or health patient care coordinator. Your mouth may get dry. Chewing sugarless gum or sucking hard candy, and drinking plenty of water may help. Contact your doctor if the problem does not go away or is severe. Cyclobenzaprine Hydrochloride Oral tablet What is this medicine? CYCLOBENZAPRINE (letitia hartman) is a muscle relaxer. It is used to treat muscle pain, spasms, and stiffness. How should I use this medicine? Take this medicine by mouth with a glass of water. Follow the directions on the prescription label. If this medicine upsets your stomach, take it with food or milk. Take your medicine at regular intervals. Do not take it more often than directed. Talk to your log chain feeder regarding the use of this medicine in children. Special care may be needed. What side effects may I notice from receiving this medicine? Side effects that you should report to your doctor or health patient care coordinator as soon as possible: allergic reactions like skin rash, itching or hives, swelling of the face, lips, or tongue chest pain fast heartbeat hallucinations seizures vomiting Side effects that usually do not require medical attention (report to your doctor or health patient care coordinator if they continue or are bothersome): headache What may interact with this medicine? Do not take this medicine with any of the following medications: cisapride droperidol flecainide grepafloxacin halofantrine levomethadyl MAOIs like Carbex, Eldepryl, Marplan, Nardil, and Parnate nilotinib pimozide probucol sertindole This medicine may also interact with the following medications: abarelix alcohol contrast dyes dolasetron guanethidine medicines for cancer medicines for depression, anxiety, or psychotic disturbances medicines to treat an irregular heartbeat medicines used for sleep or numbness during surgery or procedure methadone octreotide ondansetron palonosetron phenothiazines like chlorpromazine, mesoridazine, prochlorperazine, thioridazine some medicines for infection like alfuzosin, chloroquine, clarithromycin, levofloxacin, mefloquine, pentamidine, troleandomycin tramadol vardenafil What if I miss a dose? If you miss a dose, take it as soon as you can. If it is almost time for your next dose, take only that dose. Do not take double or extra doses. Where should I keep my medicine? Keep out of the reach of children. Store at room temperature between 15 and 30 degrees C (59 and 86 degrees F). Keep container tightly closed. Throw away any unused medicine after the expiration date. What should I tell my health care provider before I take this medicine? They need to know if you have any of these conditions: heart disease, irregular heartbeat, or previous heart attack liver disease thyroid problem an unusual or allergic reaction to cyclobenzaprine, tricyclic antidepressants, lactose, other medicines, foods, dyes, or preservatives or trying to get breast-feeding What should I watch for while using this medicine? Check with your doctor or health patient care coordinator if your condition does not improve within 1 to 3 weeks. You may get drowsy or dizzy when you first start taking the medicine or change doses. Do not drive, use machinery, or do anything that may be dangerous until you know how the medicine affects you. Stand or sit up slowly. Your mouth may get dry. Drinking water, chewing sugarless gum, or sucking on hard candy may help. You have been given the following additional information: Flank Pain, Uncertain Cause Tramadol Hydrochloride Oral tablet Cyclobenzaprine Hydrochloride Oral tablet (Electronically signed by Marguerite Gonzales A.R.N.P. 02/09/2017 23:02)
--- NOTE | 2017-02-09 23:02 | ED MED RECONCILIATION SUMMARY ---
Patient: VIVIEN BRIAN Medication Reconciliation Report [facility] VisitID: [id number] [place] [address] 51y, M Registration Date/Time: 02/09/2017 Weight: 134.7 kg Height/Length: 71 in. BMI: 41.4 ALLERGIES: No Known Drug Allergy The patient's Home Medications are listed below: THE FOLLOWING MEDICATIONS NEED TO BE RECONCILED: Albuterol Sulfate Inhalation 2 puffs, 2 x daily Ambien Oral (5 mg) 1 tablet, at bedtime Ambien Oral Flonase Nasal Levothyroxine Sodium Oral (125 mcg) 1 tablet, daily Levothyroxine Sodium Oral PriLOSEC Oral Steroid inhaler Tessalon Perles Oral 1 capsule, at bedtime The source(s) of the original Home Medication information: patient The following Medications were given to the patient in the Emergency Department: Toradol [IVP] IVP 30 mg, administered: 02/09/2017 8:53:00 PM The following Medications were prescribed to the patient: Ultram 50 mg tablets: take 1-2 orally every 6 hours as needed for pain. Dispense twenty (20). No refills. Substitution is permissible. -- Marguerite Gonzales, CocoR.N.P. Flexeril 10 mg: Take 1 orally every 8 hours as needed for muscle spasm. Dispense twenty (20). No refills. Substitution is permissible. -- Marguerite Gonzales A.R.N.P.
--- NOTE | 2017-02-09 23:02 | ED MAR SUMMARY ---
..... Medication Administration Record [facility] [address] [place] [address] Patient: VIVIEN BRIAN Visit ID: [id number] 51y, M Weight: 134.7 kg Height/Length: 71 in BMI: 41.4 ALLERGIES: No Known Drug Allergy Given 20:53 02/09/2017 Blanca Rodriguez R.N. Medication Administered: TORADOL [IVP], Dose: 30 mg IVP over 10 second(s), Site: #1 right AC. Medication Ordered: Toradol IV 30 mg (NOW).
--- NOTE | 2017-02-09 23:02 | ED DISCHARGE INSTRUCTIONS ---
Patient: VIVIEN BRIAN General Instructions [facility] VisitID: [id number] [place] [address] 51y, M Registration Date/Time: 02/09/2017 Acute left flank pain INSTRUCTIONS Warnings: GENERAL WARNINGS: Return or contact your physician immediately if your condition worsens or changes unexpectedly, if not improving as expected, or if other problems arise. SPECIFICALLY, return if you develop pain in the abdomen, pelvis or testicle, fever, vomiting, the inability to keep fluids down, blood in vomitus, blood in diarrhea, fainting or lightheadedness. Prescription Medications: Ultram 50 mg tablets: take 1-2 orally every 6 hours as needed for pain. Dispense twenty (20). No refills. Substitution is permissible. Flexeril 10 mg: Take 1 orally every 8 hours as needed for muscle spasm. Dispense twenty (20). No refills. Substitution is permissible. Follow-up: Follow up with your doctor in about three days even if well. Call for an appointment. Summary of care provided to patient. Understanding of the discharge instructions verbalized by patient. ADDITIONAL INFORMATION Flank Pain[Uncertain Cause] The flank is the area between the upper abdomen and the back. Pain here is often related to the kidneyan infection or a kidney stone. Other causes of flank pain include spinal arthritis, pinched nerve from a disk injury, back muscle strain or spasm. The cause of your flank pain is not certain and further tests may be needed. Home Care: You may use acetaminophen (Tylenol) or ibuprofen (Motrin, Advil) to control pain, unless another medicine was prescribed. [NOTE: If you have chronic liver or kidney disease or ever had a stomach ulcer or GI bleeding, talk with your doctor before using these medicines.] If the cause of your pain is coming from the muscles, ice or heat may give relief. During the first two days after injury, apply an ICE PACK to the painful area for 20 minutes every 2-4 hours. This will reduce swelling and pain. HEAT (hot shower, hot bath or heating pad) works well for muscle spasm. You can start with ice, then switch to heat after two days. Some patients feel best alternating ice and heat treatments. Use the one method that feels the best to you. Follow Up with your doctor or as advised by our staff for further evaluation if your symptoms are not improving over the next few days. Return Promptly or contact your doctor if any of the following occur: Repeated vomiting Fever of 100.4F (38C) or higher, or as directed by your healthcare provider Increasing flank pain Pain that spreads to the front of the abdomen Dizziness, weakness or fainting Blood in your urine Burning with urination or frequent urination Increasing pain in the leg Numbness or weakness in the leg Tramadol Hydrochloride Oral tablet What is this medicine? TRAMADOL (TRA ma dole) is a pain reliever. It is used to treat moderate to severe pain in adults. How should I use this medicine? Take this medicine by mouth with a full glass of water. Follow the directions on the prescription label. If the medicine upsets your stomach, take it with food or milk. Do not take more medicine than you are told to take. Talk to your air conditioning coil assembler regarding the use of this medicine in children. Special care may be needed. What side effects may I notice from receiving this medicine? Side effects that you should report to your doctor or health home health caregiver as soon as possible: allergic reactions like skin rash, itching or hives, swelling of the face, lips, or tongue breathing difficulties, wheezing confusion itching light headedness or fainting spells redness, blistering, peeling or loosening of the skin, including inside the mouth seizures Side effects that usually do not require medical attention (report to your doctor or health home health caregiver if they continue or are bothersome): constipation dizziness drowsiness headache nausea, vomiting What may interact with this medicine? Do not take this medicine with any of the following medications: MAOIs like Carbex, Eldepryl, Marplan, Nardil, and Parnate This medicine may also interact with the following medications: alcohol or medicines that contain alcohol antihistamines benzodiazepines bupropion carbamazepine or oxcarbazepine clozapine cyclobenzaprine digoxin furazolidone linezolid medicines for depression, anxiety, or psychotic disturbances medicines for migraine headache like almotriptan, eletriptan, frovatriptan, naratriptan, rizatriptan, sumatriptan, zolmitriptan medicines for pain like pentazocine, buprenorphine, butorphanol, meperidine, nalbuphine, and propoxyphene medicines for sleep muscle relaxants naltrexone phenobarbital phenothiazines like perphenazine, thioridazine, chlorpromazine, mesoridazine, fluphenazine, prochlorperazine, promazine, and trifluoperazine procarbazine warfarin What if I miss a dose? If you miss a dose, take it as soon as you can. If it is almost time for your next dose, take only that dose. Do not take double or extra doses. Where should I keep my medicine? Keep out of the reach of children. Store at room temperature between 15 and 30 degrees C (59 and 86 degrees F). Keep container tightly closed. Throw away any unused medicine after the expiration date. What should I tell my health care provider before I take this medicine? They need to know if you have any of these conditions: brain tumor depression drug abuse or addiction head injury if you frequently drink alcohol containing drinks kidney disease or trouble passing urine liver disease lung disease, asthma, or breathing problems seizures or epilepsy suicidal thoughts, plans, or attempt; a previous suicide attempt by you or a family member an unusual or allergic reaction to tramadol, codeine, other medicines, foods, dyes, or preservatives or trying to get breast-feeding What should I watch for while using this medicine? Tell your doctor or health home health caregiver if your pain does not go away, if it gets worse, or if you have new or a different type of pain. You may develop tolerance to the medicine. Tolerance means that you will need a higher dose of the medicine for pain relief. Tolerance is normal and is expected if you take this medicine for a long time. Do not suddenly stop taking your medicine because you may develop a severe reaction. Your body becomes used to the medicine. This does NOT mean you are addicted. Addiction is a behavior related to getting and using a drug for a non-medical reason. If you have pain, you have a medical reason to take pain medicine. Your doctor will tell you how much medicine to take. If your doctor wants you to stop the medicine, the dose will be slowly lowered over time to avoid any side effects. You may get drowsy or dizzy. Do not drive, use machinery, or do anything that needs mental alertness until you know how this medicine affects you. Do not stand or sit up quickly, especially if you are an older patient. This reduces the risk of dizzy or fainting spells. Alcohol can increase or decrease the effects of this medicine. Avoid alcoholic drinks. You may have constipation. Try to have a bowel movement at least every 2 to 3 days. If you do not have a bowel movement for 3 days, call your doctor or health home health caregiver. Your mouth may get dry. Chewing sugarless gum or sucking hard candy, and drinking plenty of water may help. Contact your doctor if the problem does not go away or is severe. Cyclobenzaprine Hydrochloride Oral tablet What is this medicine? CYCLOBENZAPRINE (letitia hartman) is a muscle relaxer. It is used to treat muscle pain, spasms, and stiffness. How should I use this medicine? Take this medicine by mouth with a glass of water. Follow the directions on the prescription label. If this medicine upsets your stomach, take it with food or milk. Take your medicine at regular intervals. Do not take it more often than directed. Talk to your air conditioning coil assembler regarding the use of this medicine in children. Special care may be needed. What side effects may I notice from receiving this medicine? Side effects that you should report to your doctor or health home health caregiver as soon as possible: allergic reactions like skin rash, itching or hives, swelling of the face, lips, or tongue chest pain fast heartbeat hallucinations seizures vomiting Side effects that usually do not require medical attention (report to your doctor or health home health caregiver if they continue or are bothersome): headache What may interact with this medicine? Do not take this medicine with any of the following medications: cisapride droperidol flecainide grepafloxacin halofantrine levomethadyl MAOIs like Carbex, Eldepryl, Marplan, Nardil, and Parnate nilotinib pimozide probucol sertindole This medicine may also interact with the following medications: abarelix alcohol contrast dyes dolasetron guanethidine medicines for cancer medicines for depression, anxiety, or psychotic disturbances medicines to treat an irregular heartbeat medicines used for sleep or numbness during surgery or procedure methadone octreotide ondansetron palonosetron phenothiazines like chlorpromazine, mesoridazine, prochlorperazine, thioridazine some medicines for infection like alfuzosin, chloroquine, clarithromycin, levofloxacin, mefloquine, pentamidine, troleandomycin tramadol vardenafil What if I miss a dose? If you miss a dose, take it as soon as you can. If it is almost time for your next dose, take only that dose. Do not take double or extra doses. Where should I keep my medicine? Keep out of the reach of children. Store at room temperature between 15 and 30 degrees C (59 and 86 degrees F). Keep container tightly closed. Throw away any unused medicine after the expiration date. What should I tell my health care provider before I take this medicine? They need to know if you have any of these conditions: heart disease, irregular heartbeat, or previous heart attack liver disease thyroid problem an unusual or allergic reaction to cyclobenzaprine, tricyclic antidepressants, lactose, other medicines, foods, dyes, or preservatives or trying to get breast-feeding What should I watch for while using this medicine? Check with your doctor or health home health caregiver if your condition does not improve within 1 to 3 weeks. You may get drowsy or dizzy when you first start taking the medicine or change doses. Do not drive, use machinery, or do anything that may be dangerous until you know how the medicine affects you. Stand or sit up slowly. Your mouth may get dry. Drinking water, chewing sugarless gum, or sucking on hard candy may help. You have been given the following additional information: Flank Pain, Uncertain Cause Tramadol Hydrochloride Oral tablet Cyclobenzaprine Hydrochloride Oral tablet (Electronically signed by Marguerite Gonzales A.R.N.P. 02/09/2017 23:02)
== END 2017-02-09 22:25 | disposition home or self-care (01) ==
LOC: ED SRH 20:12
DX: R10.9 Unspecified abdominal pain (principal); E11.9 Type 2 diabetes mellitus without complications; K21.9 Gastro-esophageal reflux disease without esophagitis; Z87.891 Personal history of nicotine dependence
CPT/HCPCS: 90004; 90100; 91556; 95059